=== PATIENT | male | born 1950 | race African-American/Black ===

== ENCOUNTER 2025-04-01 15:43 | Emergency (ER) | payer MEDICARE, OTHER, SELFPAY ==
--- NOTE | 2025-04-01 15:47 | ED.DENTAL ---
HPI - Dental/Oral General Chief complaint: Dental/Oral Stated complaint: Dental Pain Time Seen by Provider: 04/01/25 15:47 Source: patient Mode of arrival: ambulatory Limitations: no limitations History of Present Illness HPI Narrative: Enoc is a 74-year-old male patient presenting to the clinic today with complaints dental pain times 2-3 months. He reports he is having pain to the left upper posterior and left lower posterior molar. Pain is worse with biting down. Rates his pain 10 at 10 when biting down. Does not like to take pain medications so he has not taken anything for pain. Related Data Home Medications ?Medication ?Instructions ?Recorded ?Confirmed ?Last Taken ?Type amlodipine 10 mg tablet mg 04/01/25 Unknown History empagliflozin 25 mg tablet 25 mg PO DAILY 04/01/25 04/01/25 Unknown History (Jardiance) losartan 100 mg tablet mg 04/01/25 Unknown History metformin 1,000 mg tablet mg 04/01/25 Unknown History Allergies Allergy/AdvReac Type Severity Reaction Status Date / Time No Known Allergies Allergy Verified 04/01/25 16:03 Review of Systems Review of Systems: Pertinent positives per HPI. Patient denies any fever, chills, rash, headache, visual changes, dizziness, cough, runny nose, sore throat, shortness of breath, chest pain, palpitations, nausea, vomiting, diarrhea, constipation, abdominal pain, or any urinary issues. PMFSH Comments At the time of my signature, I reviewed and agree with the nursing past medical, surgical, social, and family history. There is no relevant family history pertinent to the patient complaint. Exam Narrative: General: Well-developed, well nourished, in no apparent distress Head: Normocephalic, atraumatic Eyes: Pupils equally round and reactive to light bilaterally, EOM intact, sclera and conjunctive clear, no discharge, lids normal Ears: TMs intact and clear, ear canals clear, no drainage, grossly hearing normal. Nose: Nares patent, no discharge, no inflammation, no sinus tenderness. Mouth: Oropharynx without lesions or masses, poor dentition, MMM. Dental decay to the left upper posterior molar and the left lower posterior molar Neck: Supple, trachea midline, no enlargement of anterior or posterior cervical nodes, no thyroid masses or goiter palpable. Cardio: Regular rate and rhythm, s1 and s2 normal, no murmur appreciated. Resp: Clear to auscultation bilaterally anteriorly and posteriorly, no rhonchi, rales, wheezing or rubs Course Course Emergency Course: Portions of this record may have been created with voice recognition software. Level of Care: Express Care Visit Vital Signs Vital signs: Vital Signs Temperature 36.3 C L 04/01/25 15:58 Pulse Rate 56 L 04/01/25 15:58 Respiratory Rate 18 04/01/25 15:58 Blood Pressure 142/72 H 04/01/25 15:58 Pulse Oximetry 99 04/01/25 15:58 Oxygen Delivery Room Air 04/01/25 15:58 Temperature 36.3 C L 04/01/25 15:58 Pulse Rate 56 L 04/01/25 15:58 Respiratory Rate 18 04/01/25 15:58 Blood Pressure 142/72 H 04/01/25 15:58 Pulse Oximetry 99 04/01/25 15:58 Oxygen Delivery Room Air 04/01/25 15:58 Vital signs reviewed MDM - Dental/Oral MDM Narrative Medical decision making narrative: At the time of visit patient is resting comfortably on the exam table. Patient appears to be nontoxic. Complaints dental pain times 2-3 months. He reports he is having pain to the left upper posterior and left lower posterior molar. Pain is worse with biting down. Rates his pain 10 at 10 when biting down. Does not like to take pain medications so he has not taken anything for pain. On exam patient has dental pain to the left upper posterior and the left lower posterior molar with mild gingival swelling. Tenderness to palpation over these teeth. Plan: I suspect patient has dental pain to the left upper and left lower posterior molars with dental decay. Prescription for amoxicillin was sent to cover for any infection. Recommend Tylenol Motrin as needed for pain. Will put this this soon as possible Supportive measures were discussed with the patient and they voiced understanding discharge instructions and agrees to treatment plan. Return precautions reviewed Differential Diagnosis Differential diagnosis: Likely gingival abscess, dental caries, toothache, dental abscess, fracture of tooth and aphthous ulcer Discharge Plan Discharge Clinical Impression: Toothache, Dental caries Patient Disposition: Home Condition: Stable Instructions: Antibiotic Form, Toothache (ED) Additional Instructions: Take medications as prescribed-amoxicillin Increase fluids and stay well hydrated May take Tylenol/Motrin as needed for pain or fever May apply Orajel to the affected area to help alleviate pain May apply warm or cool compress to the affected area to help alleviate pain Follow-up with your dentist as soon as possible-a list of dentist was given to you. Patient Language: Emirati Prescriptions: New amoxicillin 500 mg tablet 500 mg PO Q8H 10 Days Qty: 30 0RF No Action amlodipine 10 mg tablet metformin 1,000 mg tablet losartan 100 mg tablet Jardiance 25 mg tablet 25 mg PO DAILY Follow-up/Referrals: UNKNOWN,DOCTOR [Non-Staff] Time of Disposition: 16:09 Quality NIHSS Nursing Documentation ED NIHSS nursing documentation: reviewed/agree
[2025-04-01 15:58] VITALS: BP 142/72; PULSE 56; RESP 18; TEMP 36.3; O2SAT 99
--- OUTSIDE RECORDS SUMMARY | 2025-04-01 16:08 | XMS_ITS | Clinical Summary ---
Author Organization [facility] Address [address] [place] [address] Care Team Providers Care Deputy County Attorney Name Role Phone Endy Jeffers MD Primary Care Provider [phone] Tifafny Gallagher MD Unavailable [phone] Source Comments [facility],non-owned Affiliates and Associated Physician Practices is amultiple site organization consisting of ambulatory clinics and hospital sitesin [place], [place], [place] and [place]. This disclosure is being madepursuant to the Care Everywhere program and may not contain all information available regarding this patient. Last updated 18.[facility] Allergies No known active allergies Medications * Be aware that medications may not be up to date on this document. Alwaysverify current medications with the patient. amLODIPine (NORVASC) 10 MG tablet Take 1 tablet by mouth once daily 90 tablet 3 9 Active losartan (COZAAR) 100 MG tablet Take 1 tablet by mouth once daily 90 tablet 3 9 Active blood glucose (FREESTYLE LITE STRIPS) test stripIndicatio ns:Diabetes Mellitus Use 1 strip once daily Reasons: Diabetes 100 strip 0 Active FREESTYLE LITE (FREESTYLE LITE) MISC LANCETSIndicat ions:Diabetes Mellitus 1 device by In Vitro route once daily Reasons: Diabetes 100 Each 0 Active Additional Information Patient not taking.Reported on 09/28/2019 Blood Glucose Monitoring Suppl (FREESTYLE LITE) DEVIIndication s:Diabetes Mellitus Use 1 device as directed Reasons: Diabetes 1 Each 0 Active empagliflozin (JARDIANCE) 25 MG tablet Take 1 tablet by mouth once daily 90 tablet 0 Active Additional Information Patient not taking.Reported on 07/23/2019 metFORMIN ER 24hr (GLUCOPHAGE XR) 500 MG tablet Take 2 tablets by mouth 2 times daily 1 tablet 0 Active atorvastatin (LIPITOR) 40 MG tablet Take 1 tablet by mouth at bedtime 30 tablet 0 Active Additional Information Patient not taking.Reported on 04/01/2020 lidocaine (LIDODERM) 5 % patch Apply 5 patches to skin as needed 9 Active acetaminophen (TYLENOL) 325 MG tablet Take 2 tablets by mouth every 6 hours as needed for Pain Maximum allowable Acetaminophen amount = 4 Grams (4000 mg) / 24 hours. 40 tablet 0 Active Active Problems Problem Noted Date Diagnosed Date Facial droop 08/20/2019 Essential hypertension 10/16/2018 Overview (10/16/2018): Overview: On amlodipine 10mg and losartan 100mg. Last Assessment & Plan: BP in clinic today 151/71, but BP at home typically 130's/80's. 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 Last Assessment & Plan: Struggling with insomnia, likely from anxious ruminations and PTSD, does not want pharmacotherapy. 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 Pt resistant to increasing to 1g BID. Not willing to try Januvia. - increasing Metformin to 1g qAM and 500mg qPM - pt agreed to increase exercise - will look into statin, does not want to start at this time - will schedule [facility] appt [facility]) Resolved Problems Problem Noted Date Diagnosed Date Resolved Date Hypertension 05/28/2019 Immunizations Immunization Administration Dates Next Due DTaP VACCINE IM (6wk-6yrs) 05/14/2011 HEP A VACCINE, ADULT 09/13/2018 HEP A/HEP B 05/01/2019 MENINGOCOCCAL ACWY (MCV4P) VAC IM 05/14/2011 TDAP (7yrs+) 05/14/2011 TYPHOID IM 09/13/2018 TYPHOID ORAL 05/14/2011 YELLOW FEVER 05/14/2011 ZOSTER VACCINE, LIVE 10/19/2012 Family History Medical History Relation Name Comments Diabetes - Type 2 Brother 1 Renal Disease Brother 1 esrd Diabetes - Type 2 Father COPD - Chronic Obstructive Pulmonary Disease Mother Hypertension Mother Cancer - Breast Sister Diabetes - Type 2 Son Hypertension Son Relation Name Status Comments Brother 1 Alive Brother 2 Alive Brother 3 Alive Brother 4 Alive Father Mother Sister Alive Son Alive Social History Tobacco Use Types Packs/Day Years Used Date Smoking Tobacco: Never Smokeless Tobacco: Never Alcohol Use Standard Drinks/Week Comments Yes 14 (1 standard drink = 0.6 oz pu re alcohol) Sex and Gender Information Value Date Recorded Sex Assigned at Not on file Legal Sex Male 11:42 AM CDT Gender Identity Not on file Sexual Orientation Not on file Last Filed Vital Signs Vital Sign Reading Time Taken Comments Blood Pressure 172/83 06/14/2023 1:36 PM [facility] Pulse 63 06/14/2023 1:36 PM [facility] Temperature 36.4 C (97.6 F) 06/14/2023 1:36 PM [facility] Respiratory Rate 16 06/14/2023 1:36 PM [facility] Oxygen Saturation 97% 06/14/2023 1:55 PM [facility] Inhaled Oxygen Concentration - - Weight 95.3 kg (210 lb) 06/14/2023 1:36 PM [facility] Height 190.5 cm (6' 3) 06/14/2023 1:36 PM [facility] Body Mass Index 26.25 06/14/2023 1:36 PM [facility] Plan of Treatment Health Maintenance Due Date Last Done Comments COLOGUARD (AGES 45-75) - COLON CA SCREENING 1950 CT COLONOGRAPHY - COLON CA SCREENING 1950 FIT - COLON CA SCREENING 1950 FLEX SIG - COLON CA SCREENING 1950 HEPATITIS C SCREENING 10/25/1968 PNEUMOCOCCAL VACCINE 50+ (1 of 2 - PCV) 1969 Respiratory Syncytial Virus (RSV) Vaccine Pt: or over 60 yrs (1 - Risk 60-74 years 1-dose series) 2010 ZOSTER VACCINE (2 of 3) 12/14/2012 10/19/2012 HEPATITIS B VACCINE (2 of 3 - Hep B Twinrix 3-dose series) 05/29/2019 05/01/2019 DIABETES-FOOT EXAM WITH MONOFILAMENT 05/28/2020 05/28/2019, 10/16/2018 COLON MONITORING 07/23/2020 07/23/2019, , 07/23/2019, Additional history exists Colorectal Cancer Screening 07/23/2020 DTAP/TDAP/TD VACCINES (3 - Td or Tdap) 05/14/2021 05/14/2011, 05/14/2011 DIABETES RETINOPATHY SCREENING 01/21/2022 01/22/2020, 12/04/2018 DIABETES-HGB A1C 05/02/2024 01/31/2024, , 04/16/2022, Additional history exists DEPRESSION SCREENING 06/27/2024 DIABETES - URINE PROTEIN SCREENING 06/27/2024 10/16/2018 MEDICARE AWV CALENDAR YEAR 2024 05/28/2019 DIABETES-SERUM CREATININE 01/30/20252023, 01/31/2024, 01/31/2024, Additional history exists COVID-19 VACCINE (2024- season) 2025 03/15/2022, 09/27/2021, 04/01/2021, Additional history exists INFLUENZA VACCINE (#1) 2025 4, 03/27/2013, 04/04/2012, Additional history exists COLONOSCOPY - COLON CA SCREENING 07/23/2029 07/23/2019, 07/23/2019, 07/23/2019, Additional history exists MENINGOCOCCAL GROUPS A/C/Y/W VACCINE Aged Out 05/14/2011 No longer eligible based on patient's age to complete this topic HIB VACCINE Aged Out No longer eligi ble based on patient's age to complete this topic HPV VACCINE Aged Out No longer eligi ble based on patient's age to complete this topic MENINGOCOCCAL (Group B) VACCINE SHARED DECISION-MAKING Aged Out No longer eligible based on patient's age to complete this topic Procedures Procedure Name Priority Date/Time Associated Diagnosis Comments COMPREHENSIVE METABOLIC PANEL STAT 06/14/2023 3:47 PM [facility] DIABETES EYE EXAM Routine 01/22/2020 HEMOGLOBIN A1C Add on 08/20/2019 12:28 PM [facility] Facial droop ENDOSCOPY, COLON, SCREENING Routine 07/23/2019 7:50 AM [facility] MICROALB/CREAT RATIO URINE RANDOM PANEL Routine 10/16/2018 9:47 AM CDT Type 2 diabetes mellitus without complication, without long-term current use of insulin from Last 3 Months or Most Recently Relevant to Health Maintenance Results * (ABNORMAL) COMPREHENSIVE METABOLIC PANEL (06/14/2023 3:47 PM [facility]) BUN 16 7 - 26 mg/dL 06/14/2023 4:31 PM [facility] Creatinine 1.00 0.71 - 1.16 mg/dL 06/14/2023 4:31 PM [facility] Sodium 139 136 - 145 mmol/L 06/14/2023 4:31 PM [facility] Potassium 4.4 3.5 - 4.5 mmol/L 06/14/2023 4:31 PM [facility] Chloride 108(H) 98 - 107 mmol/L 06/14/2023 4:31 PM [facility] CO2 21(L) 22 - 29 mmol/L 06/14/2023 4:31 PM [facility] Glucose 158(H) 70 - 115 mg/dL 06/14/2023 4:31 PM [facility] Calcium 8.6 8.4 - 10.2 mg/dL 06/14/2023 4:31 PM [facility] Protein Total 7.2 6.0 - 8.3 g/dL 06/14/2023 4:31 PM [facility] Albumin 3.9 3.4 - 5.0 g/dL 06/14/2023 4:31 PM [facility] Bilirubin Total 0.5 0.2 - 1.2 mg/dL 06/14/2023 4:31 PM [facility] Alkaline Phosphatase 50 40 - 150 U/L 06/14/2023 4:31 PM [facility] ALT 13 5 - 55 U/L 06/14/2023 4:31 PM [facility] AST 18 5 - 34 U/L 06/14/2023 4:31 PM [facility] Anion Gap 10 6 - 16 06/14/2023 4:31 PM [facility] BUN/Creatinine Ratio 16 7 - 23 06/14/2023 4:31 PM [facility] Osmolality Calculated 292 275 - 295 mOsm/kg 06/14/2023 4:31 PM [facility] Albumin/Globulin Ratio 1.2 1.1 - 2.3 06/14/2023 4:31 PM [facility] eGFR by CKD-EPI 80(L) >=90 mL/min/1.7 3 m2 06/14/2023 4:31 PM [facility] Blood BLOOD SPECIMEN / Unknown Venipuncture / Unknown 06/14/2023 3:47 PM [facility] 06/14/2023 3:55 PM [facility] us Jefferson Gruber MD LAB - CHEMISTRY ORDERABLES Fi nal Result [facility] [address] [place] [address], [facility] [phone] * DIABETES EYE EXAM (01/22/2020) Scanned Document HEALTH MAINTENANCE Final Result * (ABNORMAL) HEMOGLOBIN A1C (08/20/2019 12:28 PM [facility]) Hemoglobin A1c 8.3(H) 4.2 - 5.6 % 08/20/2019 6:43 PM [facility] Estimated Average Glucose 192 mg/dL 08/20/2019 6:43 PM [facility] Blood BLOOD SPECIMEN / Unknown Venipuncture / Unknown 08/20/2019 12:28 PM [facility] 08/20/2019 12:34 PM [facility] Narrative [facility] - 08/20/2019 6:43 PM [facility] The following cutoff levels are recommended by [place] [employer]. A1c > 6.5% : considered as diabetes if two separate tests >6.5% or in an appropriate clinical setting. A1c 5.7% - 6.4% : considered as prediabetes (suggest increased risk for diabetes and cardiovascular disease) Control target level: Should be individualized. < 7 for general (non-) , < 8% less stringent goal, < 6.5 more stringent goal. Hemoglobin A1c measurements are used as an aid in the diagnosis of diabetic mellitus, as an aid to identify patients who may be at the risk for developing diabetic mellitus, and for the monitoring long-term blood glucose control in individuals with diabetes mellitus. This test should not replace glucose testing for patients with Type 1 diabetes, pediatric patients, or women. Falsely low HbA1c results may be observed in patients with clinical conditions that shorten erythrocyte life span or decrease mean erythrocyte age such as the presence of unstable hemoglobin variants, elevated hemoglobin F level or other causes of hemolytic anemia . HbA1c may not accurately reflect glycemic control when clinical conditions that affect erythrocyte survival are present. Severe Iron deficiency anemia may yield falsely high results. Hemoglobin A1c assay should not be used to diagnose or monitor diabetes in patients with malignancy, recent blood transfusion, chronic kidney or liver disease. This method may yield falsely low results when hemoglobin (HbF) exceeds 5% in the specimen. Eda Tovar CLERICAL ORDER FILLER-COIL CONNECTOR LAB - CHEMISTRY ORDERABLES Final Result [facility] [address] [place] [address] * ENDOSCOPY, COLON, SCREENING (07/23/2019 7:50 AM [facility]) Report Endoscopy POC _ Patient Name: Joanne Mackenzie Procedure Date: 07/23/2019 7:50 AM Date of : 1950 Admit Type: Outpatient Age: 68 Gender: Male Ethnicity: Not or Race: Black or Attending MD: Farshad Fernandes MD _ Procedure: Colonoscopy Indications: Screening for colorectal malignant neoplasm Providers: Farshad Fernandes MD (Doctor), Jamie Riggs RN, Jamia Crowley, Bull Gang Worker Referring MD: Sushant Birch MD (Referring MD) Medicines: Monitored Anesthesia Care Complications: No immediate complications. _ Procedure: Pre-Anesthesia Assessment: - Prior to the procedure, a History and Physical was performed, and patient medications and allergies were reviewed. The patient's tolerance of previous anesthesia was also reviewed. The risks and benefits of the procedure and the sedation options and risks were discussed with the patient. All questions were answered, and informed consent was obtained. Prior Anticoagulants: The patient has taken no previous anticoagulant or antiplatelet agents. ASA Grade Assessment: II - A patient with mild systemic disease. After reviewing the risks and benefits, the patient was deemed in satisfactory condition to undergo the procedure. After I obtained informed consent, the scope was passed under direct vision. Throughout the procedure, the patient's blood pressure, pulse, and oxygen saturations were monitored continuously. The Colonoscope was introduced through the anus and advanced to the cecum, identified by appendiceal orifice and ileocecal valve. The colonoscopy was performed without difficulty. The patient tolerated the procedure well. The quality of the bowel preparation was poor. The ileocecal valve, appendiceal orifice, and rectum were photographed. Impression: - Preparation of the colon was poor. - One 6 mm polyp in the rectum, removed with a cold snare. Resected and retrieved. - Two 3 mm polyps in the transverse colon, removed with a jumbo cold forceps. Resected and retrieved. - Diverticulosis. - Stool in the entire examined colon. Findings: A 6 mm polyp was found in the rectum. The polyp was sessile. The polyp was removed with a cold snare. Resection and retrieval were complete. Estimated blood loss: none. Two sessile polyps were found in the transverse colon. The polyps were 3 mm in size. These polyps were removed with a jumbo cold forceps. Resection and retrieval were complete. Estimated blood loss: none. Diverticula were found in the colon. A moderate amount of liquid semi-liquid stool was found in the entire colon, making visualization difficult. Lavage of the area was performed, resulting in clearance with fair visualization. _ Recommendation: - Written discharge instructions were provided to the patient. - The signs and symptoms of potential delayed complications were discussed with the patient. - Patient has a contact number available for emergencies. - Return to normal activities tomorrow. - Resume previous diet. - Repeat colonoscopy in 1 year because the bowel preparation was suboptimal and for surveillance based on pathology results. - Continue present medications. Procedure Code(s): --- Professional --- 88050, Colonoscopy, flexible; with removal of tumor(s), polyp(s), or other lesion(s) by snare technique 81517, 59, Colonoscopy, flexible; with biopsy, single or multiple --- Technical --- 36280, Colonoscopy, flexible; with removal of tumor(s), polyp(s), or other lesion(s) by snare technique [id number], 59, Colonoscopy, flexible; with biopsy, single or multiple Diagnosis Code(s): --- Professional --- Z12.11, Encounter for screening for malignant neoplasm of colon K62.1, Rectal polyp D12.3, Benign neoplasm of transverse colon (hepatic flexure or splenic flexure) K57.30, Diverticulosis of large intestine without perforation or abscess without bleeding --- Technical --- Z12.11, Encounter for screening for malignant neoplasm of colon K62.1, Rectal polyp D12.3, Benign neoplasm of transverse colon (hepatic flexure or splenic flexure) K57.30, Diverticulosis of large intestine without perforation or abscess without bleeding CPT copyright 2017 [employer]. All rights reserved. The codes documented in this report are preliminary and upon statistical clerk review may be revised to meet current compliance requirements. Farshad Fernandes MD 07/23/2019 9:01:18 AM This report has been signed electronically. Number of Addenda: 0 Note Initiated On: 07/23/2019 7:50 AM [facility] ENDOS[facility] 07/23/2019 7:50 AM [facility] us Farshad Fernandes MD GI PROCEDURE ORDERABLES Edited R esult - Final [facility] ENDOSCOPY * MICROALB/CREAT RATIO URINE RANDOM PANEL (10/16/2018 9:47 AM CDT) Creatinine Urine 144 20 - 320 mg/dL [facility] Microalbumin Urine 1.4 mg/dL [facility] Comment: Reference Range Not established Microalbumin/Creat inine Ratio 10 <30 mcg/mg creat [facility] Comment: The ADA defines abnormalities in albumin excretion as follows: Category Result (mcg/mg creatinine) Normal <30 Microalbuminuria 30-299 Clinical albuminuria > OR = 300 The ADA recommends that at least two of three specimens collected within a 3-6 month period be abnormal before considering a patient to be within a diagnostic category. Test Performed at: [email or web address] [id number] [address] [facility] [place] [address] ETHAN RODRIGUEZ DO,MPH Urine URINE SPECIMEN OBTAINED BY CLEAN CATCH PROCEDURE / Unknown 10/16/2018 9:47 AM CDT 10/16/2018 9:49 AM CDT Sushant Birch Jr., MD LAB - URINE CH EMISTRY ORDERABLES Final Result [facility] [id number] [place] [address] from Last 3 Months or Most Recently Relevant to Health Maintenance Insurance MEDICARE [facility] [employer] MEDICARE ADV HMO & PPO MEDICARE [facility] Advance Directives * Full Code (Latest Code Status on File) Date Activated Date Inactivated Comments 08/20/2019 6:21 PM 08/21/2019 7:12 PM * Full Code Date Activated Date Inactivated Comments 08/20/2019 6:08 PM 08/20/2019 6:21 PM Care Teams Deputy County Attorney Relationship Specialty Start Date End Date Endy Jeffers MD [address] [facility], [id number] PCP - General Family Medicine 09/28/19 Tiffany Gallagher MD [address] [facility], [id number] Resident Internal Medicine 04/24/24
--- OUTSIDE RECORDS SUMMARY | 2025-04-01 16:08 | XMS_ITS | Data Portability ---
Author Organization ADIEL - [facility] Address [address] [place] [address] Assessment Encounter Date Assessment Date Assessment LastModified by Organization Details LastModified Time 09/01/2023 09/01/2023 Pneumodoren #1 10 drops followed by pneumodoren #2 10 drops ten minutes later Eupatorium injection Samson cocktails [email or web address] Not available 09/01/2023 14:53:56 Plan of Treatment Reminders Order Date Submit Date Provider Last Modified By Organization Details Last Modified Time Details Appointments [facility] PATIENT 2024 09:00A Ted Jeffers M.D. Not available Not available Not available Lab vitamin B12 + folate, serum or blood 2024 025 amalic Not available 10/05/2024 07:43:19 iron + TIBC + ferritin , serum 2024 025 amalic Not available 10/05/2024 07:43:19 vitamin D3, 25-hydro xy, serum 2024 025 amalic Not available 10/05/2024 07:43:19 PSA, serum or plasma 2024 025 amalic Not available 10/05/2024 07:43:19 lipid panel, serum 2024 025 amalic Not available 10/05/2024 07:43:19 TSH, serum or plasma 2024 025 amalic Not available 10/05/2024 07:43:19 HbA1c (hemoglo bin A1c), blood 2023 024 [email or web address] Not available 02/01/2024 05:34:49 vitamin B12 + folate, serum or blood 2023 024 NEVAEH Not available 02/01/2024 05:34:49 iron + TIBC + ferritin , serum 2023 024 NEVAEH Not available 02/01/2024 05:34:48 testoste liang, total, serum 2023 024 NEVAEH Not available 02/01/2024 05:34:46 vitamin D3, 25-hydro xy, serum 2023 024 12 Not available 02/06/2024 14:40:36 CBC w/ auto diff 2023 024 NEVAEH Not available 02/01/2024 05:34:45 CMP, serum or plasma 2023 024 NEVAEH Not available 02/01/2024 05:34:47 PSA, serum or plasma 2023 024 NEVAEH Not available 02/01/2024 05:34:46 lipid panel, serum 2023 024 [email or web address] Not available 02/06/2024 14:40:36 TSH, serum or plasma 2023 024 NEVAEH Not available 02/01/2024 05:34:48 HbA1c (hemoglo bin A1c), blood 2023 024 amalic Not available 07/22/2023 07:50:28 CMP, serum or plasma 2023 024 amalic Not available 07/22/2023 07:50:28 lipid panel, serum 2023 024 amalic Not available 07/22/2023 07:50:28 CBC w/ auto diff 2023 024 amalic Not available 07/22/2023 07:50:28 Referral orthoped ic surgeon referral 2024 025 amalic Emmanuel Huertas MD, [facility] , [place], [address], 03/11/2025 07:36:23 Procedures None recorded . Surgeries None recorded . Imaging None recorded . Medication Orders amlodipi ne 10 mg tablet 2024 025 [facility] #[id number], [address] [place] [address], [id number], 03/05/2025 14:08:16 metformi n 1,000 mg tablet 2024 025 [facility] #[id number], [address] [place] [address], [id number], 03/05/2025 14:08:25 losartan 100 mg tablet 2024 025 [facility] #[id number], [address] [place] [address], [id number], 03/05/2025 14:08:22 Patient TargetsNo targets recorded. Patient Instructions Encounter Date Encounter Id Patient Instructions Last Modified By Organization Details Last Modified Time 07/15/2023 [id number] high cholesterol : care instructions cwessling Not available 07/15/2023 12:21:44 01/30/2024 [id number] learning about t ype 2 diabetes cwessling Not available 01/30/2024 19:21:20 type 2 diabetes: care instructions cwessling Not available 01/30/2024 19:21:20 Take cyclobenzaprine regularly as prescribed. cwessling Not available 01/30/2024 19:18:56 09/28/2024 [id number] learning about t ype 2 diabetes cwessling Not available 09/28/2024 17:57:03 03/05/[id number] learning about t ype 2 diabetes cwessling Not available 03/05/2025 14:07:59 Reason for Referral Orthopedic Surgeon Referral for Chronic pain of right upper limb Referring Physician: Endy Jeffers, Family Medicine, Encounter Date: 03/05/2025 Results Created Date Observation Date Name Description Value Unit Range Abnormal Flag Note LastModifiedBy Organization Detail LastModifiedTime 01/31/20 24 01/31/2024 CBC W/DIF F WBC 4.8 10'3/ uL 3.5-10 .5 Not Available [facility] (Lab) [address], [place], [address], 02/01/2024 05:34:45 01/31/20 24 01/31/2024 CBC W/DIF F RBC 5.37 10'6/ uL (based on docume nted legal sex) 4.30-5 .80 Not Available [facility] (Lab) [address], [place], [address], 02/01/2024 05:34:45 01/31/20 24 01/31/2024 CBC W/DIF F HGB 16.0 g/dL (based on docume nted legal sex) 13.0-1 7.5 Not Available [facility] (Lab) [address], [place], [address], 02/01/2024 05:34:45 01/31/20 24 01/31/2024 CBC W/DIF F HCT 50.1 % (based on docume nted legal sex) 38.0-5 0.0 high Not Available [facility] (Lab) [address], [place], [address], 02/01/2024 05:34:45 01/31/20 24 01/31/2024 CBC W/DIF F MCV 93.3 fL 80.0-9 9.0 Not Available [facility] (Lab) [address], [place], [address], 02/01/2024 05:34:45 01/31/20 24 01/31/2024 CBC W/DIF F MCH 29.8 pg 27.0-3 4.0 Not Available [facility] (Lab) [address], [place], [address], 02/01/2024 05:34:45 01/31/20 24 01/31/2024 CBC W/DIF F MCHC 31.9 g/dL 32.0-3 5.5 low Not Available [facility] (Lab) [address], [place], [address], 02/01/2024 05:34:45 01/31/20 24 01/31/2024 CBC W/DIF F RDW 15.1 % 11.0-1 5.0 high Not Available [facility] (Lab) [address] [address], [place], [address], 02/01/2024 05:34:45 01/31/20 24 01/31/2024 CBC W/DIF F plt 230 10'3/ uL 150-40 0 Not Available [facility] (Lab) [address], [place], [address], 02/01/2024 05:34:45 01/31/20 24 01/31/2024 CBC W/DIF F MPV 11.0 fL 8.8-12 .1 Not Available [facility] (Lab) [address], [place], [address], 02/01/2024 05:34:45 01/31/20 24 01/31/2024 CBC W/DIF F NRBC's 0.0 % 0.0 Not Available [facility] (Lab) [address], [place], [address], 02/01/2024 05:34:45 01/31/20 24 01/31/2024 CBC W/DIF F absolute NRBCs 0.0 10'3/ uL no refere nce range establ ished Not Available [facility] (Lab) [address], [place], [address], 02/01/2024 05:34:45 01/31/20 24 01/31/2024 CBC W/DIF F neutrophils 52.1 % 34.0-7 3.0 Not Available [facility] (Lab) [address], [place], [address], 02/01/2024 05:34:45 01/31/20 24 01/31/2024 CBC W/DIF F lymphocytes 35.5 % 15.0-5 0.0 Not Available [facility] (Lab) [address], [place], [address], 02/01/2024 05:34:45 01/31/20 24 01/31/2024 CBC W/DIF F monocytes 9.5 % 1.0-15 .0 Not Available [facility] (Lab) [address], [place], [address], 02/01/2024 05:34:45 01/31/20 24 01/31/2024 CBC W/DIF F eosinophils 2.1 % 0.0-8. 0 Not Available [facility] (Lab) [address], [place], [address], 02/01/2024 05:34:45 01/31/20 24 01/31/2024 CBC W/DIF F basophils 0.6 % 0.0-2. 0 Not Available [facility] (Lab) [address], [place], [address], 02/01/2024 05:34:45 01/31/20 24 01/31/2024 CBC W/DIF F immature granulocytes 0.2 % no define d refere nce range Not Available [facility] (Lab) [address], [place], [address], 02/01/2024 05:34:45 01/31/20 24 01/31/2024 CBC W/DIF F absolute neutrophils 2.5 10'3/ uL 1.5-8. 0 Not Available [facility] (Lab) [address] [place], [address], 02/01/2024 05:34:45 01/31/20 24 01/31/2024 CBC W/DIF F absolute lymphocytes 1.7 10'3/ uL 1.0-4. 0 Not Available [facility] (Lab) [address] [place], [address], 02/01/2024 05:34:45 01/31/20 24 01/31/2024 CBC W/DIF F absolute monocytes 0.5 10'3/ uL 0.2-1. 0 Not Available [facility] (Lab) [address], [place], [address], 02/01/2024 05:34:45 01/31/20 24 01/31/2024 CBC W/DIF F absolute eosinophils 0.1 10'3/ uL 0.0-0. 6 Not Available [facility] (Lab) [address], [place], [address], 02/01/2024 05:34:45 01/31/20 24 01/31/2024 CBC W/DIF F absolute basophils 0.0 10'3/ uL 0.0-0. 3 Not Available [facility] (Lab) [address], [place], [address], 02/01/2024 05:34:45 01/31/20 24 01/31/2024 CBC W/DIF F absolute immature granulocytes 0.0 10'3/ uL 0.00-0 .10 024 2:24 AM: P indic ates parti al resul ts on a panel have been relea sed. Addit ional resul ts will follo w. 024 2:24 AM: This resul t has been final verif ied. No addit ional or mercado ed resul ts are expec anthony. Not Available [facility] (Lab) [address], [place], [address], 02/01/2024 05:34:45 01/31/20 24 01/31/2024 TESTO STERO NE, TOTAL testosterone , total 343 NG/dL 200-80 0 Not Available [facility] (Lab) [address], [place], [address], 02/01/2024 05:34:46 01/31/20 24 01/31/2024 PSA TOTAL (DIAG NOSTI C) PSA, total 2.39 NG/mL 0.00-4 .00 This assay was perfo rmed using Beckm an Coult er reage nts and test kits. Value s obtai bipin with other assay metho ds or kits canno t be used inter mercado eably . Not Available [facility] (Lab) [address], [place], [address], 02/01/2024 05:34:46 01/31/20 24 01/31/2024 LIPID PANEL ,AMA (LDL- CALC) total cholesterol 124 mg/dL 0-199 Not Available [facility] (Lab) [address] [place], [address], 02/01/2024 05:34:47 01/31/20 24 01/31/2024 LIPID PANEL ,AMA (LDL- CALC) triglyceride s 53 mg/dL 0-150 NCEP Refer ence Value s for Trigl yceri radha: Steph l: <150 mg/dL Borde rline High: 150 - 199 mg/dL High: 200 - 499 mg/dL Very High: >/= 500 mg/dL Not Available [facility] (Lab) [address] [place], [address], 02/01/2024 05:34:47 01/31/20 24 01/31/2024 LIPID PANEL ,AMA (LDL- CALC) HDL cholesterol 63 mg/dL >40 Not Available [facility] (Lab) [address] [place], [address], 02/01/2024 05:34:47 01/31/20 24 01/31/2024 LIPID PANEL ,AMA (LDL- CALC) LDL cholesterol 48 mg/dL 0-99 Cutof f value s recom kelli d by the Natio nal Surekha stero l Educa tion Progr am: DILLON ABLE: Surekha stero l <200 mg/dL LDL <100 mg/dL BORDE RLINE : Surekha stero l 200-2 39 mg/dL LDL 101-1 59 mg/dL HIGHE R RISK: Surekha stero l >240 mg/dL LDL >160 mg/dL , HDL <40 mg/dL Not Available [facility] (Lab) [address], [place], [address], 02/01/2024 05:34:47 01/31/2001/31/2024 LIPID PANEL ,AMA (LDL- CALC) non-HDL cholesterol 61 mg/dL no refere nce range A reaso nable goal for non-H DL surekha stero l is one that is 30 mg/dL highe r than the LDL surekha stero l goal. Not Available [facility] (Lab) [address], [place], [address], 02/01/2024 05:34:47 01/31/2001/31/2024 LIPID PANEL ,AMA (LDL- CALC) chol/HDL ratio 2.0 . 0.0-5. 0 On October 19, 2022, [facility] labor atori es rogelio ed the equat ion for calcu latin g estim ated low-d ensit y lipop rotei n-cho leste rol (LDL- C) from the Fried joceline equat ion to the Jess n/Hop kins equat ion. This new equat ion is only valid for lipid panel s with trigl yceri radha < 400 mg/dL . Jesúsi es hans arenas ed that this new equat ion will impro ve the accur acy of LDL-C , espec ially in scena falk when LDL-C bobby ntrat ions are relat ively low (< 100 mg/dL ), trigl yceri radha are eleva anthony, or patie nt is non-f astin g. Refer ences : - Jess masters, Gabo Gudino, Hao Reyes , Carie colmenares, Donavan Calloway, Donavan freire, Naun browne , and Oliver Chávez . 2013. Comp ariso n of a Novel Metho d vs the Fried joceline Equat ion for Estim ating Low-D ensit y Lipop rotei n Surekha stero l Level s from the Stand deacon Lipid Profi derrell. ADRIANNA: The Journ al of the Ameri can Medic al Assoc iatio n 310 (19): 206- . - Ila brown V, Mireya J, Maria Dolores ar A, Michelle M, Sandee e R, Juwan brown E, Carlo browne RS, Kyler SR, Jess n SS. Fast ing Versu s Nonfa sting and Low-D ensit y Lipop rotei n Surekha stero l Accur acy. Circu latyemi n. 2017Jun 28;137 (1):1 0-19. Not Available [facility] (Lab) [address], [place], [address], 02/01/2024 05:34:47 01/31/20 24 01/31/2024 CMP(C OMPRE HENSI VE METAB OLIC PANEL ) sodium 139 mmol/ L 133-14 6 Not Available [facility] (Lab) [address], [place], [address], 02/01/2024 05:34:47 01/31/20 24 01/31/2024 CMP(C OMPRE HENSI VE METAB OLIC PANEL ) potassium 4.5 mmol/ L 3.5-5. 1 Not Available [facility] (Lab) [address], [place], [address], 02/01/2024 05:34:47 01/31/20 24 01/31/2024 CMP(C OMPRE HENSI VE METAB OLIC PANEL ) chloride 104 mmol/ L 98-107 Not Available [facility] (Lab) [address] [place], [address], 02/01/2024 05:34:47 01/31/20 24 01/31/2024 CMP(C OMPRE HENSI VE METAB OLIC PANEL ) carbon dioxide 26 mmol/ L 21-31 Not Available [facility] (Lab) [address] [place], [address], 02/01/2024 05:34:47 01/31/20 24 01/31/2024 CMP(C OMPRE HENSI VE METAB OLIC PANEL ) anion gap 9 mmol/ L 4-13 Not Available [facility] (Lab) [address], [place], [address], 02/01/2024 05:34:47 01/31/20 24 01/31/2024 CMP(C OMPRE HENSI VE METAB OLIC PANEL ) blood urea nitrogen 16 mg/dL 7-25 Not Available [facility] (Lab) [address], [place], [address], 02/01/2024 05:34:47 01/31/20 24 01/31/2024 CMP(C OMPRE HENSI VE METAB OLIC PANEL ) creatinine 1.09 mg/dL 0.60-1 .30 Not Available [facility] (Lab) [address], [place], [address], 02/01/2024 05:34:47 01/31/20 24 01/31/2024 CMP(C OMPRE HENSI VE METAB OLIC PANEL ) egfrcr (CKD-epi 2020) 72 mL/mi n/1.7 3_m2 >=60 Not Available [facility] (Lab) [address], [place], [address], 02/01/2024 05:34:47 01/31/20 24 01/31/2024 CMP(C OMPRE HENSI VE METAB OLIC PANEL ) calcium 9.3 mg/dL 8.3-10 .5 Not Available [facility] (Lab) [address] [place], [address], 02/01/2024 05:34:47 01/31/20 24 01/31/2024 CMP(C OMPRE HENSI VE METAB OLIC PANEL ) glucose 106 mg/dL 70-100 high Not Available [facility] (Lab) [address] [place], [address], 02/01/2024 05:34:47 01/31/20 24 01/31/2024 CMP(C OMPRE HENSI VE METAB OLIC PANEL ) protein, total 7.2 g/dL 6.4-8. 3 Not Available [facility] (Lab[facility] [address] [facility] [place], [address], 02/01/2024 05:34:47 01/31/20 24 01/31/2024 CMP(C OMPRE HENSI VE METAB OLIC PANEL ) albumin 4.5 g/dL 3.5-5. 0 Not Available [facility] (Lab) [address], [place], [address], 02/01/2024 05:34:47 01/31/20 24 01/31/2024 CMP(C OMPRE HENSI VE METAB OLIC PANEL ) ALT 12 units /L 11-51 Not Available [facility] (Lab) [address], [place], [address], 02/01/2024 05:34:47 01/31/20 24 01/31/2024 CMP(C OMPRE HENSI VE METAB OLIC PANEL ) alkaline phosphatase 54 units /L 34-104 Not Available [facility] (Lab) [address], [place], [address], 02/01/2024 05:34:47 01/31/20 24 01/31/2024 CMP(C OMPRE HENSI VE METAB OLIC PANEL ) AST 14 units /L 13-39 Not Available [facility] (Lab) [address], [place], [address], 02/01/2024 05:34:47 01/31/20 24 01/31/2024 CMP(C OMPRE HENSI VE METAB OLIC PANEL ) bilirubin, total 0.6 mg/dL 0.2-1. 2 Not Available [facility] (Lab) [address], [place], [address], 02/01/2024 05:34:47 01/31/20 24 01/31/2024 TSH TSH 2.21 uIU/m L 0.30-5 .33 Not Available [facility] (Lab) [address] [place], [address], 02/01/2024 05:34:48 01/31/20 24 01/31/2024 RUDY TIN / IRON / TRANS RDUY N / TIBC iron 79 ug/dL 60-175 Not Available [facility] (Lab) [address] [place], [address], 02/01/2024 05:34:48 01/31/20 24 01/31/2024 RUDY TIN / IRON / TRANS RUDY N / TIBC transferrin 266 mg/dL 200-36 0 Not Available [facility] (Lab) [address], [place], [address], 02/01/2024 05:34:48 01/31/20 24 01/31/2024 RUDY TIN / IRON / TRANS RUDY N / TIBC ferritin 115.4 NG/mL 24.0-3 36.0 Not Available [facility] (Lab) [address], [place], [address], 02/01/2024 05:34:48 01/31/20 24 01/31/2024 RUDY TIN / IRON / TRANS RUDY N / TIBC TIBC 372 ug/dL 250-45 0 Not Available [facility] (Lab) [address] [place], [address], 02/01/2024 05:34:48 01/31/20 24 01/31/2024 URDY TIN / IRON / TRANS RUDY N / TIBC iron saturation 21 % 20-55 Not Available [facility] (Lab) [address] [place], [address], 02/01/2024 05:34:48 01/31/20 24 01/31/2024 VITAM IN B12 / FOLAT E PANEL vitamin B12 548 pg/mL 180-91 4 Steph l Range : 180-9 14 pg/mL . Indet ermin ate Range : 145-1 80 pg/mL . Defic ient Range : <=145 pg/mL . Not Available [facility] (Lab) [address] [place], [address], 02/01/2024 05:34:49 08/06/20 24 01/31/2024 VITAM IN B12 / FOLAT E PANEL folate, serum 11.4 NG/mL 6.0-20 .0 Not Available [facility] (Lab) [address], [place], [address], 02/01/2024 05:34:49 01/31/20 24 01/31/2024 HEMOG LOBIN A1C hemoglobin A1C 7.4 % 0-5.6 high The Ameri can Diabe nate Assoc iatio n recom mends that a prima ry goal of thera py shoul d be a HBA1C of < 7% and that physi cians shoul d reeva luate the treat ment regim en in patie nts with HBA1C value s consi stent ly > 8%. <5.7% Steph l 5.7 - 6.4% Incre ased risk for diabe nate >=6.5 % Diagn ostic of diabe nate <7.0% Goal of thera py >8.0% Actio n sugge sted Not Available [facility] (Lab) [address], [place], [address], 02/01/2024 05:34:49 09/29/1909/28/2024 CBC W/DIF F WBC 5.4 10'3/ uL 3.5-10 .5 Not Available [facility] (Lab) [address], [place], [address], 09/29/2024 07:02:39 09/29/1909/28/2024 CBC W/DIF F RBC 5.16 10'6/ uL (based on docume nted legal sex) 4.30-5 .80 Not Available [facility] (Lab) [address], [place], [address], 09/29/2024 07:02:39 09/29/19 25 09/28/2024 CBC W/DIF F HGB 15.4 g/dL (based on docume nted legal sex) 13.0-1 7.5 Not Available [facility] (Lab) [address], [place], [address], 09/29/2024 07:02:39 09/29/19 25 09/28/2024 CBC W/DIF F HCT 46.4 % (based on docume nted legal sex) 38.0-5 0.0 Not Available [facility] (Lab) [address], [place], [address], 09/29/2024 07:02:39 09/29/19 25 09/28/2024 CBC W/DIF F MCV 89.9 fL 80.0-9 9.0 Not Available [facility] (Lab) [address], [place], [address], 09/29/2024 07:02:39 09/29/19 25 09/28/2024 CBC W/DIF F MCH 29.8 pg 27.0-3 4.0 Not Available [facility] (Lab) [address], [place], [address], 09/29/2024 07:02:39 09/29/19 25 09/28/2024 CBC W/DIF F MCHC 33.2 g/dL 32.0-3 5.5 Not Available [facility] (Lab) [address], [place], [address], 09/29/2024 07:02:39 09/29/19 25 09/28/2024 CBC W/DIF F RDW 13.8 % 11.0-1 5.0 Not Available [facility] (Lab) [address], [place], [address], 09/29/2024 07:02:39 09/29/19 25 09/28/2024 CBC W/DIF F plt 213 10'3/ uL 150-40 0 Not Available [facility] (Lab) [address], [place], [address], 09/29/2024 07:02:39 09/29/19 25 09/28/2024 CBC W/DIF F MPV 10.3 fL 8.8-12 .1 Not Available [facility] (Lab) [address], [place], [address], 09/29/2024 07:02:39 09/29/19 25 09/28/2024 CBC W/DIF F neutrophils 50.1 % 34.0-7 3.0 Not Available [facility] (Lab) [address] [place], [address], 09/29/2024 07:02:39 09/29/19 25 09/28/2024 CBC W/DIF F lymphocytes 37.2 % 15.0-5 0.0 Not Available [facility] (Lab) [address], [place], [address], 09/29/2024 07:02:39 09/29/19 25 09/28/2024 CBC W/DIF F monocytes 10.6 % 1.0-15 .0 Not Available [facility] (Lab) [address], [place], [address], 09/29/2024 07:02:39 09/29/19 25 09/28/2024 CBC W/DIF F eosinophils 1.5 % 0.0-8. 0 Not Available [facility] (Lab) [address] [place], [address], 09/29/2024 07:02:39 09/29/19 25 09/28/2024 CBC W/DIF F basophils 0.4 % 0.0-2. 0 Not Available [facility] (Lab) [address], [place], [address], 09/29/2024 07:02:39 09/29/1909/28/2024 CBC W/DIF F immature granulocytes 0.2 % no define d refere nce range Immat ure Granu locyt es (IG) repre sents autom ated enume ratio n of Metam yeloc ytes, Myelo cytes and Promy elocy nate when IG is < 5%. Blast s are not inclu ded in IG and repor anthony separ ately if prese nt. Not Available [facility] (Lab) [address], [place], [address], 09/29/2024 07:02:39 09/29/19 25 09/28/2024 CBC W/DIF F absolute neutrophils 2.7 10'3/ uL 1.5-8. 0 Not Available [facility] (Lab) [address], [place], [address], 09/29/2024 07:02:39 09/29/19 25 09/28/2024 CBC W/DIF F absolute lymphocytes 2.0 10'3/ uL 1.0-4. 0 Not Available [facility] (Lab) [address], [place], [address], 09/29/2024 07:02:39 09/29/19 25 09/28/2024 CBC W/DIF F absolute monocytes 0.6 10'3/ uL 0.2-1. 0 Not Available [facility] (Lab) [address], [place], [address], 09/29/2024 07:02:39 09/29/19 25 09/28/2024 CBC W/DIF F absolute eosinophils 0.1 10'3/ uL 0.0-0. 6 Not Available [facility] (Lab) [address], [place], [address], 09/29/2024 07:02:39 09/29/1909/28/2024 CBC W/DIF F absolute basophils 0.0 10'3/ uL 0.0-0. 3 Not Available [facility] (Lab) [address], [place], [address], 09/29/2024 07:02:39 09/29/1909/28/2024 CBC W/DIF F absolute immature granulocytes 0.0 10'3/ uL 0.00-0 .10 Refer ence range s for nonbi nary/ inter sex or unspe cifie d gende r patie nts have not been estab lishe d. Deshawn latif refer to the follo wing table for range s estab lishe d for cisge nder patie nts and evalu ate in the clini iqra molina xt of the indiv idual patie nt: https ://mil jaquez book. nm.or g/gen derx Not Available [facility] (Lab) [address], [place], [address], 09/29/2024 07:02:39 09/29/19 25 09/28/2024 CMP(C OMPRE HENSI VE METAB OLIC PANEL ) sodium 138 mmol/ L 133-14 6 Not Available [facility] (Lab) [address] [place], [address], 09/29/2024 07:02:40 09/29/19 25 09/28/2024 CMP(C OMPRE HENSI VE METAB OLIC PANEL ) potassium 4.5 mmol/ L 3.5-5. 1 Not Available [facility] (Lab) [address], [place], [address], 09/29/2024 07:02:40 09/29/19 25 09/28/2024 CMP(C OMPRE HENSI VE METAB OLIC PANEL ) chloride 105 mmol/ L 98-107 Not Available [facility] (Lab) [address] [place], [address], 09/29/2024 07:02:40 09/29/19 25 09/28/2024 CMP(C OMPRE HENSI VE METAB OLIC PANEL ) carbon dioxide 25 mmol/ L 21-31 Not Available [facility] (Lab) [address] [place], [address], 09/29/2024 07:02:40 09/29/19 25 09/28/2024 CMP(C OMPRE HENSI VE METAB OLIC PANEL ) anion gap 8 mmol/ L 4-13 Not Available [facility] (Lab) [address] [place], [address], 09/29/2024 07:02:40 09/29/19 25 09/28/2024 CMP(C OMPRE HENSI VE METAB OLIC PANEL ) blood urea nitrogen 19 mg/dL 7-25 Not Available [facility] (Lab) [address], [place], [address], 09/29/2024 07:02:40 09/29/19 25 09/28/2024 CMP(C OMPRE HENSI VE METAB OLIC PANEL ) creatinine 1.20 mg/dL 0.60-1 .30 Not Available [facility] (Lab) [address], [place], [address], 09/29/2024 07:02:40 09/29/19 25 09/28/2024 CMP(C OMPRE HENSI VE METAB OLIC PANEL ) egfrcr (CKD-epi 2020) 64 mL/mi n/1.7 3_m2 >=60 Not Available [facility] (Lab) [address], [place], [address], 09/29/2024 07:02:40 09/29/19 25 09/28/2024 CMP(C OMPRE HENSI VE METAB OLIC PANEL ) calcium 9.3 mg/dL 8.3-10 .5 Not Available [facility] (Lab) [address], [place], [address], 09/29/2024 07:02:40 09/29/19 25 09/28/2024 CMP(C OMPRE HENSI VE METAB OLIC PANEL ) glucose 90 mg/dL 70-100 Not Available [facility] (Lab) [address], [place], [address], 09/29/2024 07:02:40 09/29/19 25 09/28/2024 CMP(C OMPRE HENSI VE METAB OLIC PANEL ) protein, total 7.2 g/dL 6.4-8. 3 Not Available [facility] (Lab) [address], [place], [address], 09/29/2024 07:02:40 09/29/19 25 09/28/2024 CMP(C OMPRE HENSI VE METAB OLIC PANEL ) albumin 4.4 g/dL 3.5-5. 0 Not Available [facility] (Lab) [address], [place], [address], 09/29/2024 07:02:40 09/29/19 25 09/28/2024 CMP(C OMPRE HENSI VE METAB OLIC PANEL ) ALT 12 units /L 11-51 Not Available [facility] (Lab) [address], [place], [address], 09/29/2024 07:02:40 09/29/19 25 09/28/2024 CMP(C OMPRE HENSI VE METAB OLIC PANEL ) alkaline phosphatase 54 units /L 34-104 Not Available [facility] (Lab) [address], [place], [address], 09/29/2024 07:02:40 09/29/19 25 09/28/2024 CMP(C OMPRE HENSI VE METAB OLIC PANEL ) AST 17 units /L 13-39 Not Available [facility] (Lab) [address], [place], [address], 09/29/2024 07:02:40 09/29/19 25 09/28/2024 CMP(C OMPRE HENSI VE METAB OLIC PANEL ) bilirubin, total 0.6 mg/dL 0.2-1. 2 Not Available [facility] (Lab) [address], [place], [address], 09/29/2024 07:02:40 09/29/19 25 09/28/2024 HEMOG LOBIN A1C hemoglobin A1C 7.0 % 4.0-5. 6 high The [employer] n recom mends that a prima ry goal of thera vijay chowdary be a HBA1C of < 7% and that physi cians zackul d reeva luate the treat ment regim en in patie nts with HBA1C value s consi stent ly > 8%. <5.7% Steph l 5.7 - 6.4% Incre ased risk for diabe nate >=6.5 % Diagn ostic of diabe nate <7.0% Goal of thera py >8.0% Actio guerrero ramirez sted Not Available [facility] (Lab) [address], [place], [address], 09/29/2024 07:02:40 04/27/20 24 04/27/2024 MRI, naina jennifer, w/o contr ast No observ ation record ed. [email or web address] [facility] [address], [place], [address], 04/30/2024 09:47:42 Result Notes None recorded. Problems Name Problem SNOMED Code Status Onset Date Resolution Date Notes Provider Name and Address Organization Details Recorded Time Type 2 diabetes mellitus 65426109 Active 2019 Not Available [facility] 2 11:54:26 Diabetes mellitus 63726442 Active 2019 Not Available [facility] 2 11:54:26 Chronic cough 73818609 Active 2019 Not Available [facility] 2 11:54:26 History of transient ischemic attack 245270667 Active 2019 Not Available [facility] 2 11:54:25 Hyperlipid emia 65485171 Active 2019 Not Available [facility] 2 11:54:26 Osteoarthr itis of knee 277784748 Active 2019 Not Available [facility] 2 11:54:26 Chronic neck pain 1735439982553 Active 2019 Not Available [facility] 2 11:54:25 Hypertensi ve disorder 37366931 Active 2019 Not Available [facility] 2 11:54:26 Cough 43436440 Active 2020 Not Available [facility] 2 11:54:26 Chest pain 29651970 Active 2020 Not Available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
--- OUTSIDE RECORDS SUMMARY | 2025-04-01 16:08 | XMS_ITS | Clinical Summary ---
Author Organization [facility] Address [address] [place] [address] Phone Care Team Providers Care Airline Counter Agent Name Role Phone Bita Shields MD Primary Care Provider [phone] Allergies No known active allergies Medications albuterol HFA 90 mcg inhaler Take 2 Puffs by inhalation every 6 hours as needed for Wheezing or Shortness of Breath. 8.5 Gram 7 Active chlorpheniramin e-HYDROcodone (TUSSIONEX) 8-10 mg/5 mL Suspension, Sust. Release 12HR Take 5 mL by mouth every 12 hours as needed for Cough. Max Daily Amount: 10 mL 115 mL 7 Active Social History Tobacco Use Types Packs/Day Years Used Date Smoking Tobacco: Never Smokeless Tobacco: Never Alcohol Use Standard Drinks/Week Comments Yes 0 (1 standard drink = 0.6 oz pur e alcohol) Sex and Gender Information Value Date Recorded Sex Assigned at Not on file Legal Sex Male 1:27 PM MOLECULAR GENETICIST Gender Identity Not on file Sexual Orientation Not on file Last Filed Vital Signs Vital Sign Reading Time Taken Comments Blood Pressure 132/94 05/17/2017 4:30 PM MOLECULAR GENETICIST Pulse 60 05/17/2017 4:30 PM MOLECULAR GENETICIST Temperature 37.1 C (98.7 F) 05/17/2017 4:30 PM MOLECULAR GENETICIST Respiratory Rate 18 05/17/2017 4:30 PM MOLECULAR GENETICIST Oxygen Saturation 100% 05/17/2017 4:30 PM MOLECULAR GENETICIST Inhaled Oxygen Concentration - - Weight 98.9 kg (218 lb) 05/17/2017 1:49 PM MOLECULAR GENETICIST Height 190.5 cm (6' 3) 05/17/2017 1:49 PM MOLECULAR GENETICIST Body Mass Index 27.25 05/17/2017 1:49 PM MOLECULAR GENETICIST Plan of Treatment Health Maintenance Due Date Last Done Comments DTAP/TDAP/TD VACCINES (1 - Tdap) 1969 COLORECTAL SCREENING 10/31/1995 Colorectal Cancer Screening 10/31/1995 FIT-DNA Q 3 years 10/31/1995 FIT/FOBT Q 1 year 10/31/1995 Flex Sig/CT Colonography Q 5 years 10/31/1995 PNEUMOCOCCAL VACCINE 50+ YEARS (1 of 1 - PCV) 10/31/19 ZOSTER VACCINE (1 of 2) 2000 INFLUENZA VACCINE (#1) 2025 RSV VACCINE (60+ or ) (1 - 1-dose 75+ series) 2025 Insurance MEDICARE PART A AND B [employer] Care Teams Airline Counter Agent Relationship Specialty Start Date End Date Bita Shields MD PCP - General Internal Medicine 05/17/17
--- OUTSIDE RECORDS SUMMARY | 2025-04-01 16:13 | XMS_ITS | Clinical Summary ---
Author Organization [facility] Address [address] [place] [address] Care Team Providers Care Hand Hide Stretcher Name Role Phone Endy Jeffers MD Primary Care Provider [phone] Social History Tobacco Use Types Packs/Day Years Used Date Smoking Tobacco: Never Assessed Sex and Gender Information Value Date Recorded Sex Assigned at Male 10/08/2024 8:25 AM CDT Legal Sex Male 8:02 AM CDT Gender Identity Not on file Sexual Orientation Not on file Plan of Treatment Health Maintenance Due Date Last Done Comments Colorectal Cancer Screening Colonoscopy (10 Years) 1950 Kidney Health Evaluation 1950 Hepatitis C 1968 Annual Medicare Wellness Visit 10/31/2015 Hemoglobin A1C 02/18/2020 08/20/2019, 10/16/2018 Diabetes: Retinopathy Eye Exam 01/21/2022 01/22/2020 Zoster Vaccines (3 of 3) 05/23/2024 03/28/2024, 09/26 COVID-19 Vaccine ( season) 2025 03/15/2022, 09/27/2021, 04/01/2021, Additional history exists Influenza Adult (#1) 2025 03/28/2024, 03/27/2013, 04/04/2012, Additional history exists Lipid Panel 10/08/2025 10/08/2024 RSV Immunization or 60+ Years (1 - 1-dose 75+ series) 2025 DTaP, Tdap and Td Vaccines (6 - Td or Tdap) 05/16/2034 05/16/2024, 05/12/2022, 05/27/2011, Additional history exists Meningococcal Vaccine Aged Out 05/14/2011 No aramis stephanie eligible based on patient's age to complete this topic Pneumococcal Vaccine: 50+ Years Completed 03/28/2024, 04/03/2010 Meningococcal B Vaccine Aged Out No l onger eligible based on patient's age to complete this topic RSV Immunizations Under 20 Months Aged Out No longer eligible based on patient's age to complete this topic Procedures Procedure Name Priority Date/Time Associated Diagnosis Comments LIPID PANEL Routine 10/08/2024 9:19 AM CDT Fatigue Diabetes mellitus ([facility]) Essential (primary) hypertension Hyperlipidemia Prolonged posttraumatic stress disorder Personal history of transient cerebral ischemia Prostate cancer screening from Last 3 Months or Most Recently Relevant to Health Maintenance Results * LIPID PANEL (10/08/2024 9:19 AM CDT) CHOLESTEROL 136 <200.0 MG/DL 10/08/2024 12:33 PM CDT [facility] TRIGLYCERIDES 51 <150 MG/DL 10/08/2024 12:33 PM T [facility] HDL 76 >40.0 MG/DL 10/08/2024 12:33 PM T [facility] LDL (CALCULATED) 50 <100 MG/DL 10/09/19 25 12:33 PM T [facility] NON HDL CHOLESTEROL 60 <130 MG/DL 10/08 12:33 PM T [facility] CHOL/HDL RATIO 1.8 0.0 - 4.5 10/08/2024 12:33 PM T [facility] VLDL CALCULATION 10 5 - 55 MG/DL 10/08/2024 12:33 PM T [facility] LIPID INTERPRETATION 10/08/2024 12:33 PM T [facility] Comment: NIH CONCENSUS REPORT RECOMMENDATIONS: ADULT CHILD LOW RISK: CHOLESTEROL <200 <170 TRIGLYCERIDE <150 --- HDL >=60 --- LDL <100 <110 BORDERLINE: CHOLESTEROL 200-239 170-199 TRIGLYCERIDE 150-199 --- HDL 40-59 --- LDL 100-159 110-129 HIGH RISK: CHOLESTEROL >=240 >=200 TRIGLYCERIDE >=200 --- HDL <40 --- LDL >=160 >=130 10/08/2024 9:19 AM CDT Endy Jeffers MD LABORATORY Final Resu lt [facility] [address] [place] [address], [place] [phone] from Last 3 Months or Most Recently Relevant to Health Maintenance Insurance [employer] MEDICARE MEDICARE [employer] Care Teams Hand Hide Stretcher Relationship Specialty Start Date End Date Endy Jeffers MD [address] [place] [address] PCP - General FAMILY PRACTICE 10/08/24
== END 2025-04-01 16:15 | disposition home or self-care (01) ==
PROVIDERS: Emergency Provider Nurse Practitioner Family
DX: K02.9 Dental caries, unspecified (principal); I10 Essential (primary) hypertension; E11.9 Type 2 diabetes mellitus without complications; Z79.84 Long term (current) use of oral hypoglycemic drugs
CPT/HCPCS: 99213; G0463

== ENCOUNTER 2025-04-18 14:22 | Emergency (ER) | payer MEDICARE, OTHER, SELFPAY ==
[2025-04-18 14:24] VITALS: BP 156/79; PULSE 60; RESP 16; TEMP 36.4; O2SAT 100
--- NOTE | 2025-04-18 14:27 | ED.DENTAL ---
HPI - Dental/Oral General Chief complaint: Dental/Oral Stated complaint: dental pain Time Seen by Provider: 04/18/25 14:27 Source: patient Mode of arrival: ambulatory Limitations: no limitations History of Present Illness HPI Narrative: Enoc is a 74-year-old male patient presenting to the ER today for left upper and lower dental pain. He was seen in the [facility] on April 01 and was diagnosed with dental infection at that time and prescribed amoxicillin. He reports he finished all the antibiotics and his symptoms were improving however now they started back up again. He has been taking Tylenol and ibuprofen for pain and this helps alleviate his pain but he does not like taking all this medication. Rates pain 02/03 currently. Has not yet seen his dentist. 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 Related Data Home Medications ?Medication ?Instructions ?Recorded ?Confirmed ?Last Taken ?Type amlodipine 10 mg tablet mg 04/01/25 Unknown History empagliflozin 25 mg tablet 25 mg PO DAILY 04/01/25 04/01/25 Unknown History (Jardiance) losartan 100 mg tablet mg 04/01/25 Unknown History metformin 1,000 mg tablet mg 04/01/25 Unknown History Allergies Allergy/AdvReac Type Severity Reaction Status Date / Time No Known Allergies Allergy Verified 04/18/25 14:31 Review of Systems Review of Systems: Pertinent positives per HPI. Patient denies any fever, chills, rash, headache, visual changes, dizziness, cough, shortness of breath, chest pain, palpitations, nausea, vomiting, diarrhea, constipation, abdominal pain, or any urinary issues. PMFSH Comments At the time of my signature, I reviewed and agree with the nursing past medical, surgical, social, and family history. There is no relevant family history pertinent to the patient complaint. Exam Narrative: General: Well-developed, well nourished, in no apparent distress Head: Normocephalic, atraumatic Eyes: Pupils equally round and reactive to light bilaterally, EOM intact, sclera and conjunctive clear, no discharge, lids normal Ears: TMs intact and clear, ear canals clear, no drainage, grossly hearing normal. Nose: Nares patent, no discharge, no inflammation, no sinus tenderness. Mouth: Oral pharynx without lesions or masses, poor dentition, MMM. Left upper posterior molar and left lower posterior molar pain with some gingival swelling, no palpable abscess. Neck: Supple, trachea midline, no enlargement of anterior or posterior cervical nodes, no thyroid masses or goiter palpable. Cardio: Regular rate and rhythm, s1 and s2 normal, no murmur appreciated. Resp: Clear to auscultation bilaterally, no rhonchi, rales, wheezing or rubs Course Course Emergency Course: Portions of this record may have been created with voice recognition software. Vital Signs Vital signs: Vital Signs Temperature 36.4 C 04/18/25 14:24 Pulse Rate 60 04/18/25 14:24 Respiratory Rate 16 04/18/25 14:24 Blood Pressure 156/79 H 04/18/25 14:24 Pulse Oximetry 100 04/18/25 14:24 Oxygen Delivery Room Air 04/18/25 14:24 Temperature 36.4 C 04/18/25 14:24 Pulse Rate 60 04/18/25 14:24 Respiratory Rate 16 04/18/25 14:24 Blood Pressure 156/79 H 04/18/25 14:24 Pulse Oximetry 100 04/18/25 14:24 Oxygen Delivery Room Air 04/18/25 14:24 Vital signs reviewed MDM - Dental/Oral MDM Narrative Medical decision making narrative: At the time of visit patient is resting comfortably on the exam table. Patient appears to be nontoxic. C/o left upper and lower dental pain. He was seen in the [facility] on April 01 and was diagnosed with dental infection at that time and prescribed amoxicillin. He reports he finished all the antibiotics and his symptoms were improving however now they started back up again. He has been taking Tylenol and ibuprofen for pain and this helps alleviate his pain but he does not like taking all this medication. Has not yet seen his dentist. 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 On exam patient has left upper posterior molar and left lower posterior molar pain with some gingival swelling, no palpable abscess. Rates pain 8/10 currently. Patient requesting Tylenol for pain. Medications: Tylenol 1 g p.o. given in the clinic Plan: I suspect patient has dentalgia/dental infection. Prescription for Augmentin was sent to the pharmacy. Recommend follow-up with dentist as soon as possible also recommend a probiotic since you have just finished an antibiotic recently. Supportive measures were discussed with the patient and they voiced understanding discharge instructions and agrees to treatment plan. Return precautions reviewed Differential Diagnosis Differential diagnosis: Likely gingival abscess, dental caries, toothache, dental abscess, fracture of tooth and aphthous ulcer Discharge Plan Discharge Clinical Impression: Dental infection, Dentalgia Patient Disposition: Home Condition: Stable Instructions: Antibiotic Form, Toothache (ED) Additional Instructions: Tylenol 1 g p.o. given in the ER today Take medications as prescribed-Augmentin May take a probiotic daily 2 hours before 2 hours after taking the antibiotic since you recently finished antibiotics. Increase fluids and stay well hydrated May take Tylenol 1 g every 8 hours as needed for pain May take Motrin 600mg every 8 hours as needed for pain or fever May apply Orajel to the affected area to help alleviate pain May apply warm or cool compress to the affected area to help alleviate pain Follow-up with your dentist as soon as possible May return to the ER for any worsening of symptoms. Patient Language: Mongolian Prescriptions: New amoxicillin-pot clavulanate 875-125 mg tablet 1 tablet PO Q12H 10 Days Qty: 20 0RF No Action amlodipine 10 mg tablet metformin 1,000 mg tablet losartan 100 mg tablet Jardiance 25 mg tablet 25 mg PO DAILY amoxicillin 500 mg tablet 500 mg PO Q8H 10 Days Qty: 30 0RF Follow-up/Referrals: [facility] [Primary Care Provider, Medical] Time of Disposition: 14:36 Quality NIHSS Nursing Documentation ED NIHSS nursing documentation: reviewed/agree
[2025-04-18] MEDS: ACETAMINOPHEN 500 MG TABLET 1000 MG PO (14:43)
--- OUTSIDE RECORDS SUMMARY | 2025-04-18 15:23 | XMS_ITS | Clinical Summary ---
Author Organization [facility] [employer] Address [address] [place] [address] Care Team Providers Care Section Supervisor Name Role Phone Endy Jeffers MD Primary Care Provider [phone] Tiffany Gallagher MD Unavailable [phone] Source Comments [facility] [employer]non-owned Affiliates and Associated Physician Practices is amultiple site organization consisting of ambulatory clinics and hospital sitesin [place], [place], [place]. This disclosure is being madepursuant to the Care Everywhere program and may not contain all information available regarding this patient. Last updated 18.[facility] [employer] 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 Last Assessment & Plan: A1c stable at [...] Comments Blood Pressure 172/83 06/14/2023 1:36 PM HEALTH INFORMATION DIRECTOR Pulse 63 06/14/2023 1:36 PM HEALTH INFORMATION DIRECTOR Temperature 36.4 C (97.6 F) 06/14/2023 1:36 PM HEALTH INFORMATION DIRECTOR Respiratory Rate 16 06/14/2023 1:36 PM HEALTH INFORMATION DIRECTOR Oxygen Saturation 97% 06/14/2023 1:55 PM HEALTH INFORMATION DIRECTOR Inhaled Oxygen Concentration - - Weight 95.3 kg (210 lb) 06/14/2023 1:36 PM HEALTH INFORMATION DIRECTOR Height 190.5 cm (6' 3) 06/14/2023 1:36 PM HEALTH INFORMATION DIRECTOR Body Mass Index 26.25 06/14/2023 1:36 PM HEALTH INFORMATION DIRECTOR Plan of Treatment Health Maintenance Due Date [...] COMPREHENSIVE METABOLIC PANEL STAT 06/14/2023 3:47 PM HEALTH INFORMATION DIRECTOR DIABETES EYE EXAM Routine 01/22/2020 HEMOGLOBIN A1C Add on 08/20/2019 12:28 PM HEALTH INFORMATION DIRECTOR Facial droop ENDOSCOPY, COLON, SCREENING Routine 07/23/2019 7:50 AM HEALTH INFORMATION DIRECTOR MICROALB/CREAT RATIO URINE RANDOM PANEL Routine 10/16/2018 9:47 AM CDT Type 2 diabetes mellitus without complication, without long-term current use of insulin from Last 3 Months or Most Recently Relevant to Health Maintenance Results * (ABNORMAL) COMPREHENSIVE METABOLIC PANEL (06/14/2023 3:47 PM HEALTH INFORMATION DIRECTOR) BUN 16 7 - 26 mg/dL 06/14/2023 4:31 PM [facility] Creatinine 1.00 0.71 - 1.16 mg/dL 06/14/2023 4:31 PM [facility] Sodium 139 136 - 145 mmol/L 06/14/2023 4:31 PM [facility] Potassium 4.4 3.5 - 4.5 mmol/L 06/14/2023 4:31 PM [facility] Chloride 108(H) 98 - 107 mmol/L 06/14/2023 4:31 PM [facility] CO2 21(L) 22 - 29 mmol/L 06/14/2023 4:31 PM [facility] Glucose 158(H) 70 - 115 mg/dL 06/14/2023 4:31 PM [facility] Calcium 8.6 8.4 - 10.2 mg/dL 06/14/2023 4:31 PM [facility] Protein Total 7.2 6.0 - 8.3 g/dL 06/14/2023 4:31 PM [facility] Albumin 3.9 3.4 - 5.0 g/dL 06/14/2023 4:31 PM [facility] Bilirubin Total 0.5 0.2 - 1.2 mg/dL 06/14/2023 4:31 PM [facility] Alkaline Phosphatase 50 40 - 150 U/L 06/14/2023 4:31 PM [facility] ALT 13 5 - 55 U/L 06/14/2023 4:31 PM [facility] AST 18 5 - 34 U/L 06/14/2023 4:31 PM [facility] Anion Gap 10 6 - 16 06/14/2023 4:31 PM [facility] BUN/Creatinine Ratio 16 7 - 23 06/14/2023 4:31 PM [facility] Osmolality Calculated 292 275 - 295 mOsm/kg 06/14/2023 4:31 PM [facility] Albumin/Globulin Ratio 1.2 1.1 - 2.3 06/14/2023 4:31 PM [facility] eGFR by CKD-EPI 80(L) >=90 mL/min/1.7 3 m2 06/14/2023 4:31 PM [facility] Blood BLOOD SPECIMEN / Unknown Venipuncture / Unknown 06/14/2023 3:47 PM HEALTH INFORMATION DIRECTOR 06/14/2023 3:55 PM HEALTH INFORMATION DIRECTOR us Jefferson Gruber MD LAB - CHEMISTRY ORDERABLES Fi nal Result [facility] [address] [place] [address], [facility] [phone] * DIABETES EYE EXAM (01/22/2020) Scanned Document HEALTH MAINTENANCE Final Result * (ABNORMAL) HEMOGLOBIN A1C (08/20/2019 12:28 PM HEALTH INFORMATION DIRECTOR) Hemoglobin A1c 8.3(H) 4.2 - 5.6 % 08/20/2019 6:43 PM HEALTH INFORMATION DIRECTOR [facility] Estimated Average Glucose 192 mg/dL 08/20/2019 6:43 PM HEALTH INFORMATION DIRECTOR [facility] Blood BLOOD SPECIMEN / Unknown Venipuncture / Unknown 08/20/2019 12:28 PM HEALTH INFORMATION DIRECTOR 08/20/2019 12:34 PM HEALTH INFORMATION DIRECTOR Narrative [facility] - 08/20/2019 6:43 PM HEALTH INFORMATION DIRECTOR The following cutoff levels are recommended by [employer]. A1c > 6.5% : considered [...] exceeds 5% in the specimen. Eda Tovar SHIP/REC/DOC CONTROL-HEAVY LIFT RIGGER LAB - CHEMISTRY ORDERABLES Final Result [facility] [address] [place] [address] * ENDOSCOPY, COLON, SCREENING (07/23/2019 7:50 AM HEALTH INFORMATION DIRECTOR) Report Endoscopy POC _ Patient Name: Joanne Mackenzie Procedure Date: 07/23/2019 7:50 AM Date of : 1950 Admit Type: Outpatient Age: 68 Gender: Male Ethnicity: Not or Race: Black or Attending MD: Farshad Fernandes MD _ Procedure: Colonoscopy Indications: Screening for colorectal malignant neoplasm Providers: Farshad Fernandes MD (Doctor), Jamie Riggs RN, Jamia Crowley, Is Manager Referring MD: Sushant Birch MD (Referring MD) [...] present medications. Procedure Code(s): --- Professional --- 17030, Colonoscopy, flexible; with removal of tumor(s), polyp(s), or other lesion(s) by snare technique 51310, 59, Colonoscopy, flexible; with biopsy, single or multiple --- Technical --- 03940, Colonoscopy, flexible; with removal of tumor(s), polyp(s), or other lesion(s) by snare technique 40730, 59, Colonoscopy, flexible; with biopsy, single or [...] or abscess without bleeding CPT copyright 2017 [employer]. All rights reserved. The codes documented in this report are preliminary and upon medical insurance coder review may be revised to meet current compliance requirements. Farshad Fernandes MD 07/23/2019 9:01:18 AM This report has been signed electronically. Number of Addenda: 0 Note Initiated On: 07/23/2019 7:50 AM [facility] 07/23/2019 7:50 AM HEALTH INFORMATION DIRECTOR us Farshad Fernandes MD GI PROCEDURE ORDERABLES Edited R esult - Final [facility] * MICROALB/CREAT RATIO URINE RANDOM PANEL [...] within a diagnostic category. Test Performed at: [facility] [address] [address] [facility] [place] [address] ETHAN RODRIGUEZ DO,MPH Urine URINE SPECIMEN OBTAINED BY CLEAN CATCH PROCEDURE / Unknown 10/16/2018 9:47 AM CDT 10/16/2018 9:49 AM CDT Sushant Birch Jr., MD LAB - URINE CH EMISTRY ORDERABLES Final Result [email or web address] [address] [place] [address] from Last 3 Months or Most Recently Relevant to Health Maintenance Insurance MEDICARE [facility] [employer] MEDICARE ADV HMO & PPO MEDICARE [facility]/ Address: [facility] CLAIMS [address] [place] [address] Advance Directives * Full Code (Latest Code Status on File) Date Activated Date Inactivated Comments 08/20/2019 6:21 PM 08/21/2019 7:12 PM * Full Code Date Activated Date Inactivated Comments 08/20/2019 6:08 PM 08/20/2019 6:21 PM Care Teams Section Supervisor Relationship Specialty Start Date End Date Endy Jeffers MD [address], [address] PCP - General Family Medicine 09/28/19 Tiffany Gallagher MD [address] [facility], [address] Resident Internal Medicine 04/24/24
--- OUTSIDE RECORDS SUMMARY | 2025-04-18 15:23 | XMS_ITS | Clinical Summary ---
Author Organization [facility] Address [address] [place] [address] Phone Care Team Providers Care Firing Pin Gauger Name Role Phone Bita Shields MD Primary Care Provider [phone] Allergies No known active allergies Medications albuterol [...] on file Legal Sex Male 1:27 PM RESIDENTIAL WORKER Gender Identity Not on file Sexual Orientation Not on file Last Filed Vital Signs Vital Sign Reading Time Taken Comments Blood Pressure 132/94 05/17/2017 4:30 PM RESIDENTIAL WORKER Pulse 60 05/17/2017 4:30 PM RESIDENTIAL WORKER Temperature 37.1 C (98.7 F) 05/17/2017 4:30 PM RESIDENTIAL WORKER Respiratory Rate 18 05/17/2017 4:30 PM RESIDENTIAL WORKER Oxygen Saturation 100% 05/17/2017 4:30 PM RESIDENTIAL WORKER Inhaled Oxygen Concentration - - Weight 98.9 kg (218 lb) 05/17/2017 1:49 PM RESIDENTIAL WORKER Height 190.5 cm (6' 3) 05/17/2017 1:49 PM RESIDENTIAL WORKER Body Mass Index 27.25 05/17/2017 1:49 PM RESIDENTIAL WORKER Plan of Treatment Health Maintenance Due Date [...] 2025 Insurance MEDICARE PART A AND B [employer] Care Teams Firing Pin Gauger Relationship Specialty Start Date End Date Bita Shields MD PCP - General Internal Medicine 05/17/17
--- OUTSIDE RECORDS SUMMARY | 2025-04-18 15:54 | XMS_ITS | Clinical Summary ---
Author Organization [facility] [employer] Address [address] [place] [address] Care Team Providers Care Mortar Carrier Name Role Phone Endy Jeffers MD Primary Care Provider [phone]- [phone] Tiffany Gallagher MD Unavailable [phone] Source Comments [facility] [employer],non-owned Affiliates and Associated Physician Practices is amultiple site organization consisting of ambulatory clinics and hospital sitesin [place], [place], [place] and [place]. This disclosure is being madepursuant to the Care Everywhere program and may not contain all information available regarding this patient. Last updated 18.[facility] [employer] Allergies No known active allergies Medications * [...] continues to participate in group therapy at [facility] - discussed sleep hygiene practices, pt agreed [...] Retinopathy: pending - Ancillary Support: DM educator, business reporting developer Last Assessment & Plan: A1c stable at [...] Comments Blood Pressure 172/83 06/14/2023 1:36 PM OCCUPATIONAL THERAPIST'S ASSISTANT Pulse 63 06/14/2023 1:36 PM OCCUPATIONAL THERAPIST'S ASSISTANT Temperature 36.4 C (97.6 F) 06/14/2023 1:36 PM OCCUPATIONAL THERAPIST'S ASSISTANT Respiratory Rate 16 06/14/2023 1:36 PM OCCUPATIONAL THERAPIST'S ASSISTANT Oxygen Saturation 97% 06/14/2023 1:55 PM OCCUPATIONAL THERAPIST'S ASSISTANT Inhaled Oxygen Concentration - - Weight 95.3 kg (210 lb) 06/14/2023 1:36 PM OCCUPATIONAL THERAPIST'S ASSISTANT Height 190.5 cm (6' 3) 06/14/2023 1:36 PM OCCUPATIONAL THERAPIST'S ASSISTANT Body Mass Index 26.25 06/14/2023 1:36 PM OCCUPATIONAL THERAPIST'S ASSISTANT Plan of Treatment Health Maintenance Due Date [...] COMPREHENSIVE METABOLIC PANEL STAT 06/14/2023 3:47 PM OCCUPATIONAL THERAPIST'S ASSISTANT DIABETES EYE EXAM Routine 01/22/2020 HEMOGLOBIN A1C Add on 08/20/2019 12:28 PM OCCUPATIONAL THERAPIST'S ASSISTANT Facial droop ENDOSCOPY, COLON, SCREENING Routine 07/23/2019 7:50 AM OCCUPATIONAL THERAPIST'S ASSISTANT MICROALB/CREAT RATIO URINE RANDOM PANEL Routine 10/16/2018 9:47 AM CDT Type 2 diabetes mellitus without complication, without long-term current use of insulin from Last 3 Months or Most Recently Relevant to Health Maintenance Results * (ABNORMAL) COMPREHENSIVE METABOLIC PANEL (06/14/2023 3:47 PM OCCUPATIONAL THERAPIST'S ASSISTANT) BUN 16 7 - 26 mg/dL 06/14/2023 4:31 PM [facility] Creatinine 1.00 0.71 - 1.16 mg/dL 06/14/2023 4:31 PM [facility] Sodium 139 136 - 145 mmol/L 06/14/2023 4:31 PM [facility] Potassium 4.4 3.5 - 4.5 mmol/L 06/14/2023 4:31 PM [facility] Chloride 108(H) 98 - 107 mmol/L 06/14/2023 4:31 PM [facility] CO2 21(L) 22 - 29 mmol/L 06/14/2023 4:31 PM [facility] Glucose 158(H) 70 - 115 mg/dL 06/14/2023 4:31 PM [facility] Calcium 8.6 8.4 - 10.2 mg/dL 06/14/2023 4:31 PM [facility] Protein Total 7.2 6.0 - 8.3 g/dL 06/14/2023 4:31 PM [facility] Albumin 3.9 3.4 - 5.0 g/dL 06/14/2023 4:31 PM [facility] Bilirubin Total 0.5 0.2 - 1.2 mg/dL 06/14/2023 4:31 PM [facility] Alkaline Phosphatase 50 40 - 150 U/L 06/14/2023 4:31 PM [facility] ALT 13 5 - 55 U/L 06/14/2023 4:31 PM [facility] AST 18 5 - 34 U/L 06/14/2023 4:31 PM [facility] Anion Gap 10 6 - 16 06/14/2023 4:31 PM [facility] BUN/Creatinine Ratio 16 7 - 23 06/14/2023 4:31 PM [facility] Osmolality Calculated 292 275 - 295 mOsm/kg 06/14/2023 4:31 PM [facility] Albumin/Globulin Ratio 1.2 1.1 - 2.3 06/14/2023 4:31 PM [facility] eGFR by CKD-EPI 80(L) >=90 mL/min/1.7 3 m2 06/14/2023 4:31 PM [facility] Blood BLOOD SPECIMEN / Unknown Venipuncture / Unknown 06/14/2023 3:47 PM OCCUPATIONAL THERAPIST'S ASSISTANT 06/14/2023 3:55 PM OCCUPATIONAL THERAPIST'S ASSISTANT us Jefferson Gruber MD LAB - CHEMISTRY ORDERABLES Fi nal Result [facility] [address] [place] [address], [facility] [phone] * DIABETES EYE EXAM (01/22/2020) Scanned Document HEALTH MAINTENANCE Final Result * (ABNORMAL) HEMOGLOBIN A1C (08/20/2019 12:28 PM OCCUPATIONAL THERAPIST'S ASSISTANT) Hemoglobin A1c 8.3(H) 4.2 - 5.6 % 08/20/2019 6:43 PM OCCUPATIONAL THERAPIST'S ASSISTANT [facility] Estimated Average Glucose 192 mg/dL 08/20/2019 6:43 PM OCCUPATIONAL THERAPIST'S ASSISTANT [facility] Blood BLOOD SPECIMEN / Unknown Venipuncture / Unknown 08/20/2019 12:28 PM OCCUPATIONAL THERAPIST'S ASSISTANT 08/20/2019 12:34 PM OCCUPATIONAL THERAPIST'S ASSISTANT Narrative [facility] - 08/20/2019 6:43 PM OCCUPATIONAL THERAPIST'S ASSISTANT The following cutoff levels are recommended by [place] [employer]. A1c > 6.5% : considered [...] exceeds 5% in the specimen. Eda Tovar BAG PRESS OPERATOR-PRIVATE EYE LAB - CHEMISTRY ORDERABLES Final Result [facility] [address] [place] [address] * ENDOSCOPY, COLON, SCREENING (07/23/2019 7:50 AM OCCUPATIONAL THERAPIST'S ASSISTANT) Report Endoscopy POC _ Patient Name: Joanne Mackenzie Procedure Date: 07/23/2019 7:50 AM Date of : 1950 Admit Type: Outpatient Age: 68 Gender: Male Ethnicity: Not or Race: Black or Attending MD: Farshad Fernandes MD _ Procedure: Colonoscopy Indications: Screening for colorectal malignant neoplasm Providers: Farshad Fernandes MD (Doctor), Jamie Riggs RN, Jamia Crowley, Chef De Partie Referring MD: Sushant Birch MD (Referring MD) [...] present medications. Procedure Code(s): --- Professional --- 11615, Colonoscopy, flexible; with removal of tumor(s), polyp(s), or other lesion(s) by snare technique 46166, 59, Colonoscopy, flexible; with biopsy, single or multiple --- Technical --- 01460, Colonoscopy, flexible; with removal of tumor(s), polyp(s), or other lesion(s) by snare technique 24506, 59, Colonoscopy, flexible; with biopsy, single or [...] or abscess without bleeding CPT copyright 2017 [place] [employer]. All rights reserved. The codes documented in this report are preliminary and upon box toe stitcher review may be revised to meet current compliance requirements. Farshad Fernandes MD 07/23/2019 9:01:18 AM This report has been signed electronically. Number of Addenda: 0 Note Initiated On: 07/23/2019 7:50 AM [facility] 07/23/2019 7:50 AM OCCUPATIONAL THERAPIST'S ASSISTANT us Farshad Fernandes MD GI PROCEDURE ORDERABLES Edited R esult - Final [facility] * MICROALB/CREAT RATIO URINE RANDOM [...] within a diagnostic category. Test Performed at: [facility] [address] [place] [address] ETHAN RODRIGUEZ DO,MPH Urine URINE SPECIMEN OBTAINED BY CLEAN CATCH PROCEDURE / Unknown 10/16/2018 9:47 AM CDT 10/16/2018 9:49 AM CDT Sushant Birch Jr., MD LAB - URINE CH EMISTRY ORDERABLES Final Result [facility] [address] [place] [address] from Last 3 Months or Most Recently Relevant to Health Maintenance Insurance MEDICARE [facility] [employer] MEDICARE ADV HMO & PPO MEDICARE [facility]/ Address: [facility] CLAIMS [address] [place] [address] Advance Directives * Full Code (Latest Code Status on File) Date Activated Date Inactivated Comments 08/20/2019 6:21 PM 08/21/2019 7:12 PM * Full Code Date Activated Date Inactivated Comments 08/20/2019 6:08 PM 08/20/2019 6:21 PM Care Teams Mortar Carrier Relationship Specialty Start Date End Date Endy Jeffers MD [address] [facility] [facility], [address] PCP - General Family Medicine 09/28/19 Tiffany Gallagher MD [address] [facility] [facility], [address] Resident Internal Medicine 04/24/24
--- OUTSIDE RECORDS SUMMARY | 2025-04-18 15:54 | XMS_ITS | Clinical Summary ---
Author Organization [facility] Address [address] [place] [address] Phone Care Team Providers Care Intermodal Customer Service Name Role Phone Bita Shields MD Primary Care Provider [phone] Allergies No known active allergies Medications albuterol [...] on file Legal Sex Male 1:27 PM SINGLE WIRE SAW OPERATOR Gender Identity Not on file Sexual Orientation Not on file Last Filed Vital Signs Vital Sign Reading Time Taken Comments Blood Pressure 132/94 05/17/2017 4:30 PM SINGLE WIRE SAW OPERATOR Pulse 60 05/17/2017 4:30 PM SINGLE WIRE SAW OPERATOR Temperature 37.1 C (98.7 F) 05/17/2017 4:30 PM SINGLE WIRE SAW OPERATOR Respiratory Rate 18 05/17/2017 4:30 PM SINGLE WIRE SAW OPERATOR Oxygen Saturation 100% 05/17/2017 4:30 PM SINGLE WIRE SAW OPERATOR Inhaled Oxygen Concentration - - Weight 98.9 kg (218 lb) 05/17/2017 1:49 PM SINGLE WIRE SAW OPERATOR Height 190.5 cm (6' 3) 05/17/2017 1:49 PM SINGLE WIRE SAW OPERATOR Body Mass Index 27.25 05/17/2017 1:49 PM SINGLE WIRE SAW OPERATOR Plan of Treatment Health Maintenance Due Date [...] 2025 Insurance MEDICARE PART A AND B [employer] Care Teams Intermodal Customer Service Relationship Specialty Start Date End Date Bita Shields MD PCP - General Internal Medicine 05/17/17
--- OUTSIDE RECORDS SUMMARY | 2025-04-18 15:54 | XMS_ITS | Clinical Summary ---
Author Organization [facility] Address [facility] [place] [address] Care Team Providers Care Rocket Test Fire Worker Name Role Phone Endy Jeffers MD Primary Care Provider [phone] Social History Tobacco Use Types Packs/Day Years [...] on patient's age to complete this topic Hepatitis A Vaccines Aged Out 05/01/2019, 09/14/19 19 No longer eligible based on patient's age [...] 10/08/2024 9:19 AM CDT Fatigue Diabetes mellitus ([facility]) Essential (primary) hypertension Hyperlipidemia Prolonged posttraumatic stress disorder Personal history of transient cerebral ischemia Prostate cancer screening from Last 3 Months or Most Recently Relevant to Health Maintenance Results * LIPID PANEL (10/08/2024 9:19 AM CDT) CHOLESTEROL 136 <200.0 MG/DL 10/08/2024 12:33 PM [facility] TRIGLYCERIDES 51 <150 MG/DL 10/08/2024 12:33 PM [facility] HDL 76 >40.0 MG/DL 10/08/2024 12:33 PM [facility] LDL (CALCULATED) 50 <100 MG/DL 10/09/19 25 12:33 PM [facility] NON HDL CHOLESTEROL 60 <130 MG/DL 10/08 12:33 PM [facility] CHOL/HDL RATIO 1.8 0.0 - 4.5 10/08/2024 12:33 PM [facility] VLDL CALCULATION 10 5 - 55 MG/DL 10/08/2024 12:33 PM [facility] LIPID INTERPRETATION 10/08/2024 12:33 PM [facility] Comment: [facility] REPORT RECOMMENDATIONS: ADULT CHILD LOW RISK: CHOLESTEROL <200 <170 TRIGLYCERIDE <150 --- HDL >=60 --- LDL <100 <110 BORDERLINE: CHOLESTEROL 200-239 170-199 TRIGLYCERIDE 150-199 --- HDL 40-59 --- LDL 100-159 110-129 HIGH RISK: CHOLESTEROL >=240 >=200 TRIGLYCERIDE >=200 --- HDL <40 --- LDL >=160 >=130 10/08/2024 9:19 AM CDT Endy Jeffers MD LABORATORY Final Resu lt [facility] [address] [address], from Last 3 Months or Most Recently Relevant to Health Maintenance Insurance [facility] MEDICARE MEDICARE HUMAN Care Teams Rocket Test Fire Worker Relationship Specialty Start Date End Date Endy Jeffers MD [address] [place] [address] PCP - General FAMILY PRACTICE 10/08/24
--- OUTSIDE RECORDS SUMMARY | 2025-04-18 15:54 | XMS_ITS | Data Portability ---
Author Organization AD[facility] - [facility] Address [address] [place] [address] Assessment Encounter Date Assessment Date Assessment LastModified by Organization Details LastModified Time 09/01/2023 09/01/2023 Pneumodoren #1 10 drops followed by pneumodoren #2 10 drops ten minutes later Eupatorium injection Samson cocktails [email or web address] Not available 09/01/2023 14:53:56 Plan of Treatment Reminders Order Date Submit Date Provider Last Modified By Organization Details Last Modified Time Details Appointments [facility] PATIENT 2024 09:00A Ted Jeffers M.D. Not [...] vitamin D3, 25-hydro xy, serum 2023 024 [email or web address] Not available 02/06/2024 14:40:36 CBC w/ auto diff 2023 024 NEVAEH Not available 02/01/2024 05:34:45 CMP, serum or plasma 2023 024 NEVAEH Not available 02/01/2024 05:34:47 PSA, serum or plasma 2023 024 NEVAEH Not available 02/01/2024 05:34:46 lipid panel, serum 2023 024 [email or web address] Not available 02/06/2024 14:40:36 TSH, serum [...] referral 2024 025 amalic Emmanuel Huertas MD, [facility] , [place], [address], 03/11/2025 07:36:23 Procedures None recorded . Surgeries None recorded . Imaging None recorded . Medication Orders amlodipi ne 10 mg tablet 2024 025 [facility] #[id number], [address] [place] [address], [id number], 03/05/2025 14:08:16 metformi n 1,000 mg tablet 2024 025 [facility] #[id number], [address] [place] [address], [id number], 03/05/2025 14:08:25 losartan 100 mg tablet 2024 025 [facility] #[id number], [address] [place] [address], [id number], 03/05/2025 14:08:22 Patient TargetsNo targets recorded. Patient Instructions Encounter Date Encounter Id Patient Instructions Last Modified By Organization Details Last Modified Time 07/15/2023 [id number] high cholesterol : care instructions cwessling Not available 07/15/2023 12:21:44 01/30/2024 [id number] learning about t ype 2 diabetes cwessling Not available 01/30/2024 19:21:20 type 2 diabetes: care instructions cwessling Not available 01/30/2024 19:21:20 Take cyclobenzaprine regularly as prescribed. cwessling Not available 01/30/2024 19:18:56 09/28/2024 [id number] learning about t ype 2 diabetes cwessling Not available 09/28/2024 17:57:03 03/05/[id number] learning about t ype 2 diabetes cwessling [...] 4.8 10'3/ uL 3.5-10 .5 Not Available [facility] (Lab) [address], [place], [address], 02/01/2024 05:34:45 01/31/20 24 01/31/2024 CBC W/DIF F RBC 5.37 10'6/ uL (based on docume nted legal sex) 4.30-5 .80 Not Available [facility] (Lab) [address], [place], [address], 02/01/2024 05:34:45 01/31/20 24 01/31/2024 CBC W/DIF F HGB 16.0 g/dL (based on docume nted legal sex) 13.0-1 7.5 Not Available [facility] (Lab) [address], [place], [address], 02/01/2024 05:34:45 01/31/20 24 01/31/2024 CBC W/DIF F HCT 50.1 % (based on docume nted legal sex) 38.0-5 0.0 high Not Available [facility] (Lab) [address], [place], [address], 02/01/2024 05:34:45 01/31/20 24 01/31/2024 CBC W/DIF F MCV 93.3 fL 80.0-9 9.0 Not Available [facility] (Lab) [address], [place], [address], 02/01/2024 05:34:45 01/31/20 24 01/31/2024 CBC W/DIF F MCH 29.8 pg 27.0-3 4.0 Not Available [facility] (Lab) [address], [place], [address], 02/01/2024 05:34:45 01/31/20 24 01/31/2024 CBC W/DIF F MCHC 31.9 g/dL 32.0-3 5.5 low Not Available [facility] (Lab) [address] [facility], [place], [address], 02/01/2024 05:34:45 01/31/20 24 01/31/2024 CBC W/DIF F RDW 15.1 % 11.0-1 5.0 high Not Available [facility] (Lab) [address] [facility], [place], [address], 02/01/2024 05:34:45 01/31/20 24 01/31/2024 CBC W/DIF F plt 230 10'3/ uL 150-40 0 Not Available [facility] (Lab) [address] [facility], [place], [address], 02/01/2024 05:34:45 01/31/20 24 01/31/2024 CBC W/DIF F MPV 11.0 fL 8.8-12 .1 Not Available [facility] (Lab) [address] [facility], [place], [address], 02/01/2024 05:34:45 01/31/20 24 01/31/2024 CBC W/DIF F NRBC's 0.0 % 0.0 Not Available [facility] (Lab) [address] [facility], [place], [address], 02/01/2024 05:34:45 01/31/20 24 01/31/2024 CBC W/DIF F absolute NRBCs 0.0 10'3/ uL no refere nce range establ ished Not Available [facility] (Lab) [address] [facility], [place], [address], 02/01/2024 05:34:45 01/31/20 24 01/31/2024 CBC W/DIF F neutrophils 52.1 % 34.0-7 3.0 Not Available [facility] (Lab) [address] [facility], [place], [address], 02/01/2024 05:34:45 01/31/20 24 01/31/2024 CBC W/DIF F lymphocytes 35.5 % 15.0-5 0.0 Not Available [facility] (Lab) [address] [facility], [place], [address], 02/01/2024 05:34:45 01/31/20 24 01/31/2024 CBC W/DIF F monocytes 9.5 % 1.0-15 .0 Not Available [facility] (Lab) [address] [facility], [place], [address], 02/01/2024 05:34:45 01/31/20 24 01/31/2024 CBC W/DIF F eosinophils 2.1 % 0.0-8. 0 Not Available [facility] (Lab) [address] [facility], [place], [address], 02/01/2024 05:34:45 01/31/20 24 01/31/2024 CBC W/DIF F basophils 0.6 % 0.0-2. 0 Not Available [facility] (Lab) [address] [facility], [place], [address], 02/01/2024 05:34:45 01/31/20 24 01/31/2024 CBC W/DIF F immature granulocytes 0.2 % no define d refere nce range Not Available [facility] (Lab) [address] [facility], [place], [address], 02/01/2024 05:34:45 01/31/20 24 01/31/2024 CBC W/DIF F absolute neutrophils 2.5 10'3/ uL 1.5-8. 0 Not Available [facility] (Lab) [address] [place], [address], 02/01/2024 05:34:45 01/31/20 24 01/31/2024 CBC W/DIF F absolute lymphocytes 1.7 10'3/ uL 1.0-4. 0 Not Available [facility] (Lab) [address] [place], [address], 02/01/2024 05:34:45 01/31/20 24 01/31/2024 CBC W/DIF F absolute monocytes 0.5 10'3/ uL 0.2-1. 0 Not Available [facility] (Lab) [address] [facility], [place], [address], 02/01/2024 05:34:45 01/31/20 24 01/31/2024 CBC W/DIF F absolute eosinophils 0.1 10'3/ uL 0.0-0. 6 Not Available [facility] (Lab) [address] [facility], [place], [address], 02/01/2024 05:34:45 01/31/20 24 01/31/2024 CBC W/DIF F absolute basophils 0.0 10'3/ uL 0.0-0. 3 Not Available [facility] (Lab) [address] [facility], [place], [address], 02/01/2024 05:34:45 01/31/20 24 01/31/2024 CBC W/DIF [...] resul ts are expec anthony. Not Available [facility] (Lab) [address] [facility], [place], [address], 02/01/2024 05:34:45 01/31/20 24 01/31/2024 TESTO STERO NE, TOTAL testosterone , total 343 NG/dL 200-80 0 Not Available [facility] (Lab) [address] [facility], [place], [address], 02/01/2024 05:34:46 01/31/20 24 01/31/2024 PSA TOTAL (DIAG NOSTI C) PSA, total 2.39 NG/mL 0.00-4 .00 This assay was perfo rmed using Beckm an Coult er reage nts and test kits. Value s obtai bipin with other assay metho ds or kits canno t be used inter mercado eably . Not Available [facility] (Lab) [address] [facility], [place], [address], 02/01/2024 05:34:46 01/31/20 24 01/31/2024 LIPID PANEL ,AMA (LDL- CALC) total cholesterol 124 mg/dL 0-199 Not Available [facility] (Lab) [address] [place], [address], 02/01/2024 05:34:47 01/31/20 24 01/31/2024 LIPID PANEL ,AMA (LDL- CALC) triglyceride s 53 mg/dL 0-150 NCEP Refer ence Value s for Trigl yceri radha: Steph l: <150 mg/dL Borde rline High: 150 - 199 mg/dL High: 200 - 499 mg/dL Very High: >/= 500 mg/dL Not Available [facility] (Lab) [address] [place], [address], 02/01/2024 05:34:47 01/31/20 24 01/31/2024 LIPID PANEL ,AMA (LDL- CALC) HDL cholesterol 63 mg/dL >40 Not Available [facility] (Lab) [address] [place], [address], 02/01/2024 05:34:47 01/31/20 24 01/31/2024 LIPID PANEL [...] mg/dL , HDL <40 mg/dL Not Available [facility] (Lab) [address] [facility], [place], [address], 02/01/2024 05:34:47 01/31/2001/31/2024 LIPID PANEL ,AMA (LDL- CALC) non-HDL cholesterol 61 mg/dL no refere nce range A reaso nable goal for non-H DL surekha stero l is one that is 30 mg/dL highe r than the LDL surekha stero l goal. Not Available [facility] (Lab) [address] [facility], [place], [address], 02/01/2024 05:34:47 01/31/2001/31/2024 LIPID PANEL ,AMA (LDL- CALC) chol/HDL ratio 2.0 . 0.0-5. 0 On October 19, 2022, [facility] labor atori es rogelio ed the equat [...] n. 2017Jun 28;137 (1):1 0-19. Not Available [facility] (Lab) [address] [facility], [place], [address], 02/01/2024 05:34:47 01/31/20 24 01/31/2024 CMP(C OMPRE HENSI VE METAB OLIC PANEL ) sodium 139 mmol/ L 133-14 6 Not Available [facility] (Lab) [address] [facility], [place], [address], 02/01/2024 05:34:47 01/31/20 24 01/31/2024 CMP(C OMPRE HENSI VE METAB OLIC PANEL ) potassium 4.5 mmol/ L 3.5-5. 1 Not Available [facility] (Lab) [address] [facility], [place], [address], 02/01/2024 05:34:47 01/31/20 24 01/31/2024 CMP(C OMPRE HENSI VE METAB OLIC PANEL ) chloride 104 mmol/ L 98-107 Not Available [facility] (Lab) [address] [place], [address], 02/01/2024 05:34:47 01/31/20 24 01/31/2024 CMP(C OMPRE HENSI VE METAB OLIC PANEL ) carbon dioxide 26 mmol/ L 21-31 Not Available [facility] (Lab) [address] [place], [address], 02/01/2024 05:34:47 01/31/20 24 01/31/2024 CMP(C OMPRE HENSI VE METAB OLIC PANEL ) anion gap 9 mmol/ L 4-13 Not Available [facility] (Lab) [address] [facility], [place], [address], 02/01/2024 05:34:47 01/31/20 24 01/31/2024 CMP(C OMPRE HENSI VE METAB OLIC PANEL ) blood urea nitrogen 16 mg/dL 7-25 Not Available [facility] (Lab) [address] [facility], [place], [address], 02/01/2024 05:34:47 01/31/20 24 01/31/2024 CMP(C OMPRE HENSI VE METAB OLIC PANEL ) creatinine 1.09 mg/dL 0.60-1 .30 Not Available [facility] (Lab) [address] [facility], [place], [address], 02/01/2024 05:34:47 01/31/20 24 01/31/2024 CMP(C OMPRE HENSI VE METAB OLIC PANEL ) egfrcr (CKD-epi 2020) 72 mL/mi n/1.7 3_m2 >=60 Not Available [facility] (Lab) [address] [facility], [place], [address], 02/01/2024 05:34:47 01/31/20 24 01/31/2024 CMP(C OMPRE HENSI VE METAB OLIC PANEL ) calcium 9.3 mg/dL 8.3-10 .5 Not Available [facility] (Lab) [address] [place], [address], 02/01/2024 05:34:47 01/31/20 24 01/31/2024 CMP(C OMPRE HENSI VE METAB OLIC PANEL ) glucose 106 mg/dL 70-100 high Not Available [facility] (Lab) [address] [place], [address], 02/01/2024 05:34:47 01/31/20 24 01/31/2024 CMP(C OMPRE HENSI VE METAB OLIC PANEL ) protein, total 7.2 g/dL 6.4-8. 3 Not Available [facility] (Lab) [address] [facility] [place], [address], 02/01/2024 05:34:47 01/31/20 24 01/31/2024 CMP(C OMPRE HENSI VE METAB OLIC PANEL ) albumin 4.5 g/dL 3.5-5. 0 Not Available [facility] (Lab) [address] [facility], [place], [address], 02/01/2024 05:34:47 01/31/20 24 01/31/2024 CMP(C OMPRE HENSI VE METAB OLIC PANEL ) ALT 12 units /L 11-51 Not Available [facility] (Lab) [address] [facility], [place], [address], 02/01/2024 05:34:47 01/31/20 24 01/31/2024 CMP(C OMPRE HENSI VE METAB OLIC PANEL ) alkaline phosphatase 54 units /L 34-104 Not Available [facility] (Lab) [address] [facility], [place], [address], 02/01/2024 05:34:47 01/31/20 24 01/31/2024 CMP(C OMPRE HENSI VE METAB OLIC PANEL ) AST 14 units /L 13-39 Not Available [facility] (Lab) [address] [facility], [place], [address], 02/01/2024 05:34:47 01/31/20 24 01/31/2024 CMP(C OMPRE HENSI VE METAB OLIC PANEL ) bilirubin, total 0.6 mg/dL 0.2-1. 2 Not Available [facility] (Lab) [address] [facility], [place], [address], 02/01/2024 05:34:47 01/31/20 24 01/31/2024 TSH TSH 2.21 uIU/m L 0.30-5 .33 Not Available [facility] (Lab) [address] [place], [address], 02/01/2024 05:34:48 01/31/20 24 01/31/2024 RUDY TIN / IRON / TRANS RUDY N / TIBC iron 79 ug/dL 60-175 Not Available [facility] (Lab) [address] [place], [address], 02/01/2024 05:34:48 01/31/20 24 01/31/2024 RUDY TIN / IRON / TRANS RUDY N / TIBC transferrin 266 mg/dL 200-36 0 Not Available [facility] (Lab) [address] [facility], [place], [address], 02/01/2024 05:34:48 01/31/20 24 01/31/2024 RUDY TIN / IRON / TRANS RUDY N / TIBC ferritin 115.4 NG/mL 24.0-3 36.0 Not Available [facility] (Lab) [address] [facility], [place], [address], 02/01/2024 05:34:48 01/31/20 24 01/31/2024 RUDY TIN / IRON / TRANS RUDY N / TIBC TIBC 372 ug/dL 250-45 0 Not Available [facility] (Lab) [address] [place], [address], 02/01/2024 05:34:48 01/31/20 24 01/31/2024 RUDY TIN / IRON / TRANS RUDY N / TIBC iron saturation 21 % 20-55 Not Available [facility] (Lab) [address] [place], [address], 02/01/2024 05:34:48 01/31/20 24 01/31/2024 VITAM IN B12 / FOLAT E PANEL vitamin B12 548 pg/mL 180-91 4 Steph l Range : 180-9 14 pg/mL . Indet ermin ate Range : 145-1 80 pg/mL . Defic ient Range : <=145 pg/mL . Not Available [facility] (Lab) [address] [place], [address], 02/01/2024 05:34:49 08/06/20 24 01/31/2024 VITAM IN B12 / FOLAT E PANEL folate, serum 11.4 NG/mL 6.0-20 .0 Not Available [facility] (Lab) [address], [place], [address], 02/01/2024 05:34:49 01/31/20 24 01/31/2024 HEMOG LOBIN [...] >8.0% Actio n sugge sted Not Available [facility] (Lab) [address], [place], [address], 02/01/2024 05:34:49 09/29/1909/28/2024 CBC W/DIF F WBC 5.4 10'3/ uL 3.5-10 .5 Not Available [facility] (Lab) [address], [place], [address], 09/29/2024 07:02:39 09/29/1909/28/2024 CBC W/DIF F RBC 5.16 10'6/ uL (based on docume nted legal sex) 4.30-5 .80 Not Available [facility] (Lab) [address], [place], [address], 09/29/2024 07:02:39 09/29/19 25 09/28/2024 CBC W/DIF F HGB 15.4 g/dL (based on docume nted legal sex) 13.0-1 7.5 Not Available [facility] (Lab) [address], [place], [address], 09/29/2024 07:02:39 09/29/19 25 09/28/2024 CBC W/DIF F HCT 46.4 % (based on docume nted legal sex) 38.0-5 0.0 Not Available [facility] (Lab) [address] [facility], [place], [address], 09/29/2024 07:02:39 09/29/19 25 09/28/2024 CBC W/DIF F MCV 89.9 fL 80.0-9 9.0 Not Available [facility] (Lab) [address] [facility], [place], [address], 09/29/2024 07:02:39 09/29/19 25 09/28/2024 CBC W/DIF F MCH 29.8 pg 27.0-3 4.0 Not Available [facility] (Lab) [address] [facility], [place], [address], 09/29/2024 07:02:39 09/29/19 25 09/28/2024 CBC W/DIF F MCHC 33.2 g/dL 32.0-3 5.5 Not Available [facility] (Lab) [address] [facility], [place], [address], 09/29/2024 07:02:39 09/29/19 25 09/28/2024 CBC W/DIF F RDW 13.8 % 11.0-1 5.0 Not Available [facility] (Lab) [address] [facility], [place], [address], 09/29/2024 07:02:39 09/29/19 25 09/28/2024 CBC W/DIF F plt 213 10'3/ uL 150-40 0 Not Available [facility] (Lab) [address] [facility], [place], [address], 09/29/2024 07:02:39 09/29/19 25 09/28/2024 CBC W/DIF F MPV 10.3 fL 8.8-12 .1 Not Available [facility] (Lab) [address] [facility], [place], [address], 09/29/2024 07:02:39 09/29/19 25 09/28/2024 CBC W/DIF F neutrophils 50.1 % 34.0-7 3.0 Not Available [facility] (Lab) [address] [place], [address], 09/29/2024 07:02:39 09/29/19 25 09/28/2024 CBC W/DIF F lymphocytes 37.2 % 15.0-5 0.0 Not Available [facility] (Lab) [address] [facility], [place], [address], 09/29/2024 07:02:39 09/29/19 25 09/28/2024 CBC W/DIF F monocytes 10.6 % 1.0-15 .0 Not Available [facility] (Lab) [address] [facility], [place], [address], 09/29/2024 07:02:39 09/29/19 25 09/28/2024 CBC W/DIF F eosinophils 1.5 % 0.0-8. 0 Not Available [facility] (Lab) [address] [place], [address], 09/29/2024 07:02:39 09/29/19 25 09/28/2024 CBC W/DIF F basophils 0.4 % 0.0-2. 0 Not Available [facility] (Lab) [address] [facility], [place], [address], 09/29/2024 07:02:39 09/29/1909/28/2024 CBC W/DIF F immature granulocytes 0.2 % no define d refere nce range Immat ure Granu locyt es (IG) repre sents autom ated enume ratio n of Metam yeloc ytes, Myelo cytes and Promy elocy nate when IG is < 5%. Blast s are not inclu ded in IG and repor anthony separ ately if prese nt. Not Available [facility] (Lab) [address] [facility], [place], [address], 09/29/2024 07:02:39 09/29/19 25 09/28/2024 CBC W/DIF F absolute neutrophils 2.7 10'3/ uL 1.5-8. 0 Not Available [facility] (Lab) [address] [facility], [place], [address], 09/29/2024 07:02:39 09/29/19 25 09/28/2024 CBC W/DIF F absolute lymphocytes 2.0 10'3/ uL 1.0-4. 0 Not Available [facility] (Lab) [address] [facility], [place], [address], 09/29/2024 07:02:39 09/29/19 25 09/28/2024 CBC W/DIF F absolute monocytes 0.6 10'3/ uL 0.2-1. 0 Not Available [facility] (Lab) [address] [facility], [place], [address], 09/29/2024 07:02:39 09/29/19 25 09/28/2024 CBC W/DIF F absolute eosinophils 0.1 10'3/ uL 0.0-0. 6 Not Available [facility] (Lab) [address] [facility], [place], [address], 09/29/2024 07:02:39 09/29/1909/28/2024 CBC W/DIF F absolute basophils 0.0 10'3/ uL 0.0-0. 3 Not Available [facility] (Lab) [address] [facility], [place], [address], 09/29/2024 07:02:39 09/29/1909/28/2024 CBC W/DIF F absolute [...] jaquez book. nm.or g/gen derx Not Available [facility] (Lab) [address] [facility], [place], [address], 09/29/2024 07:02:39 09/29/19 25 09/28/2024 CMP(C OMPRE HENSI VE METAB OLIC PANEL ) sodium 138 mmol/ L 133-14 6 Not Available [facility] (Lab) [address] [place], [address], 09/29/2024 07:02:40 09/29/19 25 09/28/2024 CMP(C OMPRE HENSI VE METAB OLIC PANEL ) potassium 4.5 mmol/ L 3.5-5. 1 Not Available [facility] (Lab) [address] [facility], [place], [address], 09/29/2024 07:02:40 09/29/19 25 09/28/2024 CMP(C OMPRE HENSI VE METAB OLIC PANEL ) chloride 105 mmol/ L 98-107 Not Available [facility] (Lab) [address] [place], [address], 09/29/2024 07:02:40 09/29/19 25 09/28/2024 CMP(C OMPRE HENSI VE METAB OLIC PANEL ) carbon dioxide 25 mmol/ L 21-31 Not Available [facility] (Lab) [address] [place], [address], 09/29/2024 07:02:40 09/29/19 25 09/28/2024 CMP(C OMPRE HENSI VE METAB OLIC PANEL ) anion gap 8 mmol/ L 4-13 Not Available [facility] (Lab) [address] [place], [address], 09/29/2024 07:02:40 09/29/19 25 09/28/2024 CMP(C OMPRE HENSI VE METAB OLIC PANEL ) blood urea nitrogen 19 mg/dL 7-25 Not Available [facility] (Lab) [address] [facility], [place], [address], 09/29/2024 07:02:40 09/29/19 25 09/28/2024 CMP(C OMPRE HENSI VE METAB OLIC PANEL ) creatinine 1.20 mg/dL 0.60-1 .30 Not Available [facility] (Lab) [address] [facility], [place], [address], 09/29/2024 07:02:40 09/29/19 25 09/28/2024 CMP(C OMPRE HENSI VE METAB OLIC PANEL ) egfrcr (CKD-epi 2020) 64 mL/mi n/1.7 3_m2 >=60 Not Available [facility] (Lab) [address] [facility], [place], [address], 09/29/2024 07:02:40 09/29/19 25 09/28/2024 CMP(C OMPRE HENSI VE METAB OLIC PANEL ) calcium 9.3 mg/dL 8.3-10 .5 Not Available [facility] (Lab) [address] [facility], [place], [address], 09/29/2024 07:02:40 09/29/19 25 09/28/2024 CMP(C OMPRE HENSI VE METAB OLIC PANEL ) glucose 90 mg/dL 70-100 Not Available [facility] (Lab) [address] [facility], [place], [address], 09/29/2024 07:02:40 09/29/19 25 09/28/2024 CMP(C OMPRE HENSI VE METAB OLIC PANEL ) protein, total 7.2 g/dL 6.4-8. 3 Not Available [facility] (Lab) [address] [facility], [place], [address], 09/29/2024 07:02:40 09/29/19 25 09/28/2024 CMP(C OMPRE HENSI VE METAB OLIC PANEL ) albumin 4.4 g/dL 3.5-5. 0 Not Available [facility] (Lab) [address] [facility], [place], [address], 09/29/2024 07:02:40 09/29/19 25 09/28/2024 CMP(C OMPRE HENSI VE METAB OLIC PANEL ) ALT 12 units /L 11-51 Not Available [facility] (Lab) [address] [facility], [place], [address], 09/29/2024 07:02:40 09/29/19 25 09/28/2024 CMP(C OMPRE HENSI VE METAB OLIC PANEL ) alkaline phosphatase 54 units /L 34-104 Not Available [facility] (Lab) [address] [facility], [place], [address], 09/29/2024 07:02:40 09/29/19 25 09/28/2024 CMP(C OMPRE HENSI VE METAB OLIC PANEL ) AST 17 units /L 13-39 Not Available [facility] (Lab) [address] [facility], [place], [address], 09/29/2024 07:02:40 09/29/19 25 09/28/2024 CMP(C OMPRE HENSI VE METAB OLIC PANEL ) bilirubin, total 0.6 mg/dL 0.2-1. 2 Not Available [facility] (Lab) [address] [facility], [place], [address], 09/29/2024 07:02:40 09/29/19 25 09/28/2024 HEMOG LOBIN [...] >8.0% Actio guerrero ramirez sted Not Available [facility] (Lab) [address], [place], [address], 09/29/2024 07:02:40 04/27/20 24 04/27/2024 MRI, naina jennifer, w/o contr ast No observ ation record ed. [email or web address] [facility] [address], [place], [address], 04/30/2024 09:47:42 Result Notes None recorded. Problems Name Problem SNOMED Code Status Onset Date Resolution Date Notes Provider Name and Address Organization Details Recorded Time Type 2 diabetes mellitus 36537695 Active 2019 Not Available [facility] 2 11:54:26 Diabetes mellitus 53580808 Active 2019 Not Available [facility] 2 11:54:26 Chronic cough 80406178 Active 2019 Not Available [facility] 2 11:54:26 History of transient ischemic attack 388377702 Active 2019 Not Available [facility] 2 11:54:25 Hyperlipid emia 08760237 Active 2019 Not Available [facility] 2 11:54:26 Osteoarthr itis of knee 173187606 Active 2019 Not Available [facility] 2 11:54:26 Chronic neck pain 4129307988512 Active 2019 Not Available [facility] 2 11:54:25 Hypertensi ve disorder 71086853 Active 2019 Not Available [facility] 2 11:54:26 Cough 41126147 Active 2020 Not Available [facility] 2 11:54:26 Chest pain 06510793 Active 2020 Not Available [facility] 2 11:54:26 Chronic bronchitis 42666370 Active 2021 Not Available [facility] 2 11:54:26 Chronic post-traum atic stress disorder 664892275 Active 2021 Not Available [facility] 2 11:54:26 Bronchiect asis 79560131 Active 2021 Not Available [facility] 2 11:54:26 Post-traum atic stress disorder 36102599 Active 2021 Not Available [facility] 2 11:54:25 Coronary arterioscl erosis 31399672 Active 2021 Not Available [facility] 2 11:54:26 Acute sinusitis 77054821 Active 2023 Endy Jeffers MD [address] [place], [address] , [facility] 4 14:30:51 Chronic pain of right upper limb [id number] 9108 Active 2024 Endy Jeffers MD [address] [place], [address] , [facility] 5 13:57:51 Problem Notes None recorded. Procedures Surgical History Date Name Laterality Status Provider Name and Address Organization Details Recorded Time Appendectomy completed Derrek Jerry [facility] 08/29/2019 15:50:52 Knee Surgery [facility] 08/29/2019 15:51:07 Imaging Results None recorded. Procedure Notes None recorded. Medical Equipment None Reported. Allergies No known drug allergies Medications Name Sig Start Date Stop Date Status Note LastModified by Organization Details LastModified Time Pneumodoron 2 10 drops qid 04/11 completed Not Available Not Available Not Available Pneumodoron 1 10 drops qid 04/11 completed [...] Available Not Available No t Available [employer]Style [place] Lite kit active Not Available Not Available [...] Address Organization Details Last Updated DateTime 4 20174.2 g 26.8 kg/m2 190.5 cm 97.2 [degF] 57 /min 149/80 mm[Hg] Derrek Akbar [facility] 4 10:50:02 Date Recorded Body height Body mass index (BMI) Body weight Body temperature Heart rate Systolic And Diastolic Provider Name and Address Organization Details Last Updated DateTime 4 190.5 cm 26.4 kg/m2 82732.1 5 g 97 [degF] 60 /min 137/77 mm[Hg] Derrek Akbar [facility] 4 14:10:30 Date Recorded Body height Body mass index (BMI) Body weight Heart rate Body temperature Systolic And Diastolic Provider Name and Address Organization Details Last Updated DateTime 5 190.5 cm 26.1 kg/m2 77879.8 1 g 57 /min 97 [degF] 137/81 mm[Hg] Floridalma [facility] 5 16:36:02 Date Recorded Body height Heart rate Body temperature Systolic And Diastolic Provider Name and Address Organization Details Last Updated DateTime 01/30/2024 190.5 cm 60 /min 97 [degF] 160/82 mm[Hg] Janae Higgins [facility] 01/30/2024 18:22:49 Date Recorded Body mass index (BMI) Body weight Provider Name and Address Organization Details Last Updated DateTime 01/30/2024 25.5 kg/m2 49019.84 g Floridalma Robb [facility] 01/30/2024 18:32:55 Date Recorded Body height Body mass index (BMI) Body weight Heart rate Body temperature Systolic And Diastolic Provider Name and Address Organization Details Last Updated DateTime 5 190.5 cm 25.7 kg/m2 66285.3 1 g 56 /min 97.2 [degF] 131/73 [...] N High Cholesterol Y Liver Disease N Headaches N Fibromyalgia N Kidney Disease N Ear or Hearing Problems N Thyroid Problems N Skin Problems N Anemia N Constipation N Mental Illness N Diabetes Y Bedwetting N Seizures/Epilepsy N Heart Problems/Murmur N Tuberculosis N Diverticulitis N Asthma N [...] ICD10 Code Diagnosis IMO Codes Diagnosis Note [id number] Endy Jeffers MD Main Office [address] [place] [address] 15459-041 3 08/29/2019 15:21:54 08/29/2019 17:23:54 Hypertensive disorder 60031554 I10 Chronic neck pain 478319 0363 107 M54.2 Osteoarthr itis of knee 536563872 M17.9 Diabetes mellitus 184046 09 E11.9 [id number] Endy Jeffers MD Main Office [address] [place] [address] 40899-350 3 10/31/2019 12:26:31 10/31/2019 14:22:38 Diabetes mellitus 70209394 E11.9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
== END 2025-04-18 15:12 | disposition home or self-care (01) ==
LOC: ANHED 14:49
PROVIDERS: Emergency Provider Nurse Practitioner Family
DX: K04.7 Periapical abscess without sinus (principal)
CPT/HCPCS: 99283; A9270

== ENCOUNTER 2025-05-07 16:55 | Emergency (ER) | payer MEDICARE, OTHER, SELFPAY ==
--- NOTE | 2025-05-07 16:56 | ED.DENTAL ---
HPI - Dental/Oral General Chief complaint: Dental/Oral Stated complaint: dental/oral/shoulder Time Seen by Provider: 05/07/25 16:56 Source: patient Mode of arrival: ambulatory Limitations: no limitations History of Present Illness HPI Narrative: Patient is a 74-year-old male that presents with dental pain. Patient was seen here 04/01 and 04/18 for same dental infection. Patient has not yet seen dentist as he has to go through the [facility]. patient was seen by [facility] 05/02 and given referral for dentist for a root canal but is not scheduled. Patient also complaining of right shoulder pain after doing yd work this weekend. Patient states he has had intermittent in shoulder pain and issues over the last year and has been to physical therapy. Patient has not taken anything for symptoms. Related Data Home Medications ?Medication ?Instructions ?Recorded ?Confirmed ?Last Taken ?Type amlodipine 10 mg tablet mg 04/01/25 Unknown History empagliflozin 25 mg tablet 25 mg PO DAILY 04/01/25 04/01/25 Unknown History (Jardiance) losartan 100 mg tablet mg 04/01/25 Unknown History metformin 1,000 mg tablet mg 04/01/25 Unknown History Allergies Allergy/AdvReac Type Severity Reaction Status Date / Time No Known Allergies Allergy Verified 05/07/25 17:08 Review of Systems Review of Systems: All systems reviewed & are unremarkable except as noted in HPI and below Constitutional: Constitutional: Denies body ache(s), Denies fever(s), Denies headache(s), Denies malaise and Denies weakness Eyes: Eyes: Denies loss of vision ENT: Denies otalgia, Reports facial pain (jaw), Denies headache(s), Denies nasal discharge, Denies sinus pain and Denies sore throat Cardiovascular: Cardiovascular: Denies chest pain, Denies irregular heart rhythm and Denies dyspnea Respiratory: Respiratory: Denies dyspnea Gastrointestinal: Gastrointestinal: Denies abdominal pain, Denies melena, Denies hematochezia, Denies diarrhea, Denies nausea and Denies vomiting Musculoskeletal: Musculoskeletal: Denies back pain, Denies myalgias and Reports arthralgias Integumentary/Breasts: Skin/Breast: Denies pruritus and Denies rash Neurologic: Denies headache(s), Denies loss of vision and Denies weakness Psychiatric: Psychiatric: Reports no additional psychiatric complaints PMFSH Comments At time of signature, agree with nursing past medical, surgical, social and family history. There is no relevant family history pertinent to the presenting complaint. Exam Const: General: cooperative, healthy appearing, comfortable, no acute distress and well nourished Nutritional Appearance: well nourished Orientation/consciousness: patient oriented x3 Limitations: no limitations HENMT: Head: normal to inspection, normocephalic and atraumatic Ears: hearing grossly normal bilaterally, external ears normal, TM's normal bilaterally and mastoids normal bilaterally Face/Nose/Sinus: Normal external nose present, normal facial exam and face symmetric Face and sinus: normal facial exam and face symmetric Mouth: Yes Normal oral and palatal mucosa present, Yes lip normal, Yes tongue normal, Yes Normal salivary glands and ducts present and Yes moist mucous membranes Teeth and gingiva: fair dentition and multiple restorations Teeth image:  1. Tooth that is painful on palpation but no surrounding gingival swelling or redness. No exposed root or severe decay Other: The tooth in question is very carious and the gum is swollen and tender around it. There is no facial swelling, cervical or submandibular lymphadenopathy. The patient appears uncomfortable and in pain. Eyes: General: appearance normal, both eyes and all related structures Alignment and Position: alignment normal and position normal Periorbital: periorbital findings normal Eyelids: eyelids normal Pupils: Equal, round and reactive pupils present EOM: EOMs intact bilaterally Neck: Neck: normal visual inspection, full ROM, no lymphadenopathy and supple Chest: Chest palpation & inspection: normal inspection of the chest Resp: Effort & Inspection: normal respiratory effort and able to speak in complete sentences Auscultation: clear to auscultation bilaterally Cardio: Rate: regular rate Rhythm: regular rhythm Heart sounds: S1 normal heart sound present and S2 normal heart sound present GI: Inspection: normal to inspection Skin: General skin exam: normal color and no rashes or lesions noted Neuro: General: patient oriented x3 and moves all extremities Cranial nerves: Yes Equal, round and reactive pupils present Speech: normal speech Gait exam (Neuro): Normal gait present Extrem: General: normal to inspection, full ROM and no edema Right upper extremity: shoulder/upper arm normal to inspection, axillary nerve sensory function normal and normal ROM; no tenderness and no swelling and elbow/forearm normal to inspection, normal ROM and distal pulses intact; no tenderness and no swelling Psych: Appearance: grossly normal and well kempt Mental Status: mental status grossly normal Speech and movement: Normal speech and movement present Affect: normal affect Attitude: cooperative Thought process: Normal thought process present Course Course Emergency Course: Patient is aware of diagnosis, understands and agrees to treatment plan. Anticipatory guidance given. Patient agrees to follow-up as directed and is aware of reasons to seek care at the emergency department. Portions of this record may have been created with voice recognition software Level of Care: Express Care Visit Vital Signs Vital signs: Vital Signs Temperature 36.5 C 05/07/25 17:04 Pulse Rate 57 L 05/07/25 17:04 Respiratory Rate 18 05/07/25 17:04 Blood Pressure 150/75 H 05/07/25 17:04 Oxygen Delivery Room Air 05/07/25 17:04 Temperature 36.5 C 05/07/25 17:04 Pulse Rate 57 L 05/07/25 17:04 Respiratory Rate 18 05/07/25 17:04 Blood Pressure 150/75 H 05/07/25 17:04 Oxygen Delivery Room Air 05/07/25 17:04 Reviewed MDM - Dental/Oral MDM Narrative Medical decision making narrative: Patients pain and complaint coupled with physical findings are consistant with dentalgia. There are no focal signs of space occupying lesions that are compromising to the airway; no dysphagia, odynophagia, dysphonia, or dyspnea. No uvular deviation or soft palate edema. Patient is non-toxic appearing. The floor of the mouth is soft with no signs of Eddie's Angina; no induration below mandible, no neck pain. Patient is without trismus or drooling and able to swallow secretions. Patient is felt appropriate for discharge home with dental follow up. Will send in antibiotics but patient to do watchful waiting as there is no obvious sign of infection and start taking pain medication. If not improving start antibiotics. Patient states antibiotics has not improved pain the last 2 times but the pain medicine did. The R shoulder is without obvious asymmetry or deformity when comparing to L shoulder. No surface trauma, ecchymosis, crepitus. No bony deformity of the humerus head. No erythema, warmth, swelling to palpate. Nontender to palpate over the clavicle, A to C joint, acromion, scapula, or humeral head. Nontender to palpations of the bicipital groove or soft tissue. Then nontender to palpate of the muscles of the sternocleidomastoid, pectoris, biceps/triceps, deltoid, trapezius, rhomboid, latissimus dorsi is, or rotator cuff. No pain or limitation with active or passive abduction/abduction, internal, external rotation, flexion/extension. Distal motor is a normal vascular status is intact. Pt well hydrated appearing, in no respiratory distress, hemodynamically stable. Recommend supportive care. The patient is stable at time of discharge the clinical impression was discussed and the patient was given the opportunity to ask questions, which were addressed as completely as possible given the information available at present. Anticipatory guidance and return to care precautions were discussed and the importance of primary care follow-up was stressed and encouraged. The patient voiced understanding of the plan, indications to return, and the need for follow-up. Exam findings show no acute concerns or changes Patient is appropriate for outpatient treatment and follow-up. Differential Diagnosis Differential diagnosis: Likely gingival abscess, dental caries, toothache, dental abscess and other (Shoulder strain) Medical Records Attestation: I reviewed the patient's medical records. Discharge Plan Discharge Clinical Impression: Toothache, Right shoulder strain Patient Disposition: Home Condition: Stable Instructions: Toothache (ED) Additional Instructions: Brushing teeth at least twice daily with gentle flossing. Avoid temperature extremes---when you eat. Salt gargle to rinse your mouth after every meal You may apply ice to the face to reduce pain/swelling. For pain, you may take: Tylenol 650-1000mg by mouth every 4-6 hours. Do not exceed 4000mg in 24 hours. Advil (Ibuprofen) 600 mg by mouth every 6 hours. Do not exceed 2400mg in 24 hours. 8 AM: Tylenol 11 AM: Ibuprofen 2 PM: Tylenol 5 PM: Ibuprofen 8 PM: Tylenol 11 PM: Ibuprofen 2 AM: Tylenol 5 AM: Ibuprofen Also, recommend regular dental check up one-two times a year to prevent tooth decay and other periodontal disease. Follow-up with the dentist as soon as possible--see the list provided Your blood pressure was elevated above 120/80 today at Urgent Care. This puts you above the threshold for follow up visit with a primary care provider. High blood pressure does not usually cause any symptoms, however it may lead to kidney failure, stroke, heart disease just to name a few if untreated . Many people are anxious when seeing a provider or nurse. As a result, you are not diagnosed with hypertension at this time unless your blood pressure is persistently high at two office visits at least one week apart. Some things that can help lower blood pressure are lifestyle modifications, such as light exercise, decreased salt in diet, and weight loss. It is important to follow up with a PCP about this within 1 week. Patient Language: Singaporean Prescriptions: New ibuprofen 600 mg tablet 600 mg PO TID Qty: 30 0RF amoxicillin-pot clavulanate 875-125 mg tablet 1 tablet PO Q12H 10 Days Qty: 20 0RF No Action amlodipine 10 mg tablet metformin 1,000 mg tablet losartan 100 mg tablet Jardiance 25 mg tablet 25 mg PO DAILY Follow-up/Referrals: [facility] [Primary Care Provider, Medical] - 3 Days Time of Disposition: 17:14
--- OUTSIDE RECORDS SUMMARY | 2025-05-07 16:57 | XMS_ITS | Clinical Summary ---
Author Organization [facility] [employer] Address [address] [place] [address] Care Team Providers Care Formation Testing Operator Name Role Phone Endy Jeffers MD Primary Care Provider [phone] Tiffany Gallagher MD Unavailable Source Comments [facility] [employer],non-owned Affiliates and Associated Physician Practices is amultiple site organization consisting of ambulatory clinics and hospital sitesin [place], [place], [place] and [place]. This disclosure is being madepursuant to the Care Everywhere program and may not contain all information available regarding this patient. Last updated 18.[facility] [employer] Allergies No known active allergies Medications * [...] continues to participate in group therapy at [facility] - discussed sleep hygiene practices, [...] Retinopathy: pending - Ancillary Support: DM educator, veneer taper Last Assessment & Plan: A1c stable at [...] Comments Blood Pressure 172/83 06/14/2023 1:36 PM SMALL WIND ENERGY INSTALLER Pulse 63 06/14/2023 1:36 PM SMALL WIND ENERGY INSTALLER Temperature 36.4 C (97.6 F) 06/14/2023 1:36 PM SMALL WIND ENERGY INSTALLER Respiratory Rate 16 06/14/2023 1:36 PM SMALL WIND ENERGY INSTALLER Oxygen Saturation 97% 06/14/2023 1:55 PM SMALL WIND ENERGY INSTALLER Inhaled Oxygen Concentration - - Weight 95.3 kg (210 lb) 06/14/2023 1:36 PM SMALL WIND ENERGY INSTALLER Height 190.5 cm (6' 3) 06/14/2023 1:36 PM SMALL WIND ENERGY INSTALLER Body Mass Index 26.25 06/14/2023 1:36 PM SMALL WIND ENERGY INSTALLER Plan of Treatment Health Maintenance Due Date [...] Hep B Twinrix 3-dose series) 05/29/2019 05/01/2019 DIABETES-HGB A1C 11/18/2019 08/20/2019, 07/2018, 01/25/2019, Additional history exists DIABETES-FOOT EXAM WITH MONOFILAMENT 05/28/2020 05/28/2019, 10/16/2018 COLON MONITORING 07/23/2020 07/23/2019, , 07/23/2019, Additional history exists Colorectal Cancer Screening 07/23/2020 DTAP/TDAP/TD VACCINES (3 - Td or Tdap) 05/14/2021 05/14/2011, 05/14/2011 DIABETES RETINOPATHY SCREENING 01/21/2022 01/22/2020, 12/04/2018 DIABETES-SERUM CREATININE 06/14/20242022, 04/01/2020, 08/20/2019, Additional history exists DEPRESSION SCREENING 06/27/2024 DIABETES - URINE PROTEIN SCREENING 06/27/2024 10/16/2018 MEDICARE AWV CALENDAR YEAR 2024 05/28/2019 COVID-19 VACCINE ( season) 2025 03/15/2022, 09/27/2021, 04/01/2021, Additional [...] COMPREHENSIVE METABOLIC PANEL STAT 06/14/2023 3:47 PM SMALL WIND ENERGY INSTALLER DIABETES EYE EXAM Routine 01/22/2020 HEMOGLOBIN A1C Add on 08/20/2019 12:28 PM SMALL WIND ENERGY INSTALLER Facial droop ENDOSCOPY, COLON, SCREENING Routine 07/23/2019 7:50 AM SMALL WIND ENERGY INSTALLER MICROALB/CREAT RATIO URINE RANDOM PANEL Routine 10/16/2018 9:47 AM CDT Type 2 diabetes mellitus without complication, without long-term current use of insulin from Last 3 Months or Most Recently Relevant to Health Maintenance Results * (ABNORMAL) COMPREHENSIVE METABOLIC PANEL (06/14/2023 3:47 PM SMALL WIND ENERGY INSTALLER) BUN 16 7 - 26 mg/dL 06/14/2023 4:31 PM [facility] Creatinine 1.00 0.71 - 1.16 mg/dL 06/14/2023 4:31 PM [facility] Sodium 139 136 - 145 mmol/L 06/14/2023 4:31 PM [facility] Potassium 4.4 3.5 - 4.5 mmol/L 06/14/2023 4:31 PM [facility] Chloride 108(H) 98 - 107 mmol/L 06/14/2023 4:31 PM [facility] CO2 21(L) 22 - 29 mmol/L 06/14/2023 4:31 PM [facility] Glucose 158(H) 70 - 115 mg/dL 06/14/2023 4:31 PM [facility] Calcium 8.6 8.4 - 10.2 mg/dL 06/14/2023 4:31 PM [facility] Protein Total 7.2 6.0 - 8.3 g/dL 06/14/2023 4:31 PM [facility] Albumin 3.9 3.4 - 5.0 g/dL 06/14/2023 4:31 PM [facility] Bilirubin Total 0.5 0.2 - 1.2 mg/dL 06/14/2023 4:31 PM [facility] Alkaline Phosphatase 50 40 - 150 U/L 06/14/2023 4:31 PM [facility] ALT 13 5 - 55 U/L 06/14/2023 4:31 PM [facility] AST 18 5 - 34 U/L 06/14/2023 4:31 PM [facility] Anion Gap 10 6 - 16 06/14/2023 4:31 PM [facility] BUN/Creatinine Ratio 16 7 - 23 06/14/2023 4:31 PM [facility] Osmolality Calculated 292 275 - 295 mOsm/kg 06/14/2023 4:31 PM [facility] Albumin/Globulin Ratio 1.2 1.1 - 2.3 06/14/2023 4:31 PM [facility] eGFR by CKD-EPI 80(L) >=90 mL/min/1.7 3 m2 06/14/2023 4:31 PM [facility] Blood BLOOD SPECIMEN / Unknown Venipuncture / Unknown 06/14/2023 3:47 PM SMALL WIND ENERGY INSTALLER 06/14/2023 3:55 PM [facility] us Jefefrson Gruber MD LAB - CHEMISTRY ORDERABLES Fi nal Result [facility] [address] [place] [address], [facility] [phone] * DIABETES EYE EXAM (01/22/2020) us Scanned Document HEALTH MAINTENANCE Final Result * (ABNORMAL) HEMOGLOBIN A1C (08/20/2019 12:28 PM SMALL WIND ENERGY INSTALLER) Hemoglobin A1c 8.3(H) 4.2 - 5.6 % 08/20/2019 6:43 PM [facility] Estimated Average Glucose 192 mg/dL 08/20/2019 6:43 PM SMALL WIND ENERGY INSTALLER [facility] Blood BLOOD SPECIMEN / Unknown Venipuncture / Unknown 08/20/2019 12:28 PM SMALL WIND ENERGY INSTALLER 08/20/2019 12:34 PM SMALL WIND ENERGY INSTALLER Narrative [facility] - 08/20/2019 6:43 PM SMALL WIND ENERGY INSTALLER The following cutoff levels are recommended by [place] [employer]. A1c > 6.5% : considered [...] exceeds 5% in the specimen. Eda Tovar STAMPING MILL TENDER-TEACHER LIP READING LAB - CHEMISTRY ORDERABLES Final Result [facility] [address] [place] [address] * ENDOSCOPY, COLON, SCREENING (07/23/2019 7:50 AM SMALL WIND ENERGY INSTALLER) Report Endoscopy POC _ Patient Name: Joanne Mackenzie Procedure Date: 07/23/2019 7:50 AM Date of : 1950 Admit Type: Outpatient Age: 68 Gender: Male Ethnicity: Not or Race: Black or Attending MD: Farshad eFrnandes MD _ Procedure: Colonoscopy Indications: Screening for colorectal malignant neoplasm Providers: Farshad Fernandes MD (Doctor), Jamie Riggs RN, Jamia Crowley, Electronic Equipment Installer Referring MD: Sushant Birch MD (Referring MD) [...] present medications. Procedure Code(s): --- Professional --- 89427, Colonoscopy, flexible; with removal of tumor(s), polyp(s), or other lesion(s) by snare technique 67870, 59, Colonoscopy, flexible; with biopsy, single or multiple --- Technical --- 77799, Colonoscopy, flexible; with removal of tumor(s), polyp(s), or other lesion(s) by snare technique 06762, 59, Colonoscopy, flexible; with biopsy, single or [...] or abscess without bleeding CPT copyright 2017 [employer]. All rights reserved. The codes documented in this report are preliminary and upon senior principal process engineer review may be revised to meet current compliance requirements. Farshad Fernandes MD 07/23/2019 9:01:18 AM This report has been signed electronically. Number of Addenda: 0 Note Initiated On: 07/23/2019 7:50 AM [facility] ENDOSCOPY 07/23/2019 7:50 AM SMALL WIND ENERGY INSTALLER us Farshad Fernandes MD GI PROCEDURE ORDERABLES Edited R esult - Final [facility] ENDOSCOPY * MICROALB/CREAT RATIO URINE RANDOM [...] within a diagnostic category. Test Performed at: [facility] [address] [address] ETHAN RODRIGUEZ DO,MPH Urine URINE SPECIMEN OBTAINED BY CLEAN CATCH PROCEDURE / Unknown 10/16/2018 9:47 AM CDT 10/16/2018 9:49 AM CDT Sushant Birch Jr., MD LAB - URINE CH EMISTRY ORDERABLES Final Result [facility] [address] [place] [address] from Last 3 Months or Most Recently Relevant to Health Maintenance Insurance MEDICARE [facility] [employer] MEDICARE ADV HMO & PPO MEDICARE [facility]/ Address: [facility] CLAIMS [address] [place] [address] Advance Directives * Full Code (Latest Code Status on File) Date Activated Date Inactivated Comments 08/20/2019 6:21 PM 08/21/2019 7:12 PM * Full Code Date Activated Date Inactivated Comments 08/20/2019 6:08 PM 08/20/2019 6:21 PM Care Teams Formation Testing Operator Relationship Specialty Start Date End Date Endy Jeffers MD [address], [address] PCP - General Family Medicine 09/28/19 Tiffany Gallagher MD [address], [address] Resident Internal Medicine 04/24/24
--- OUTSIDE RECORDS SUMMARY | 2025-05-07 16:57 | XMS_ITS | Clinical Summary ---
Author Organization [facility] Address [address] [facility] [address] [place] [address] Care Team Providers Care Wood Grinder Name Role Phone Endy Jeffers MD Primary Care Provider [phone]- [phone] Social History Tobacco Use Types Packs/Day Years [...] 10/08/2024 9:19 AM CDT Fatigue Diabetes mellitus ([facility]) Essential (primary) hypertension Hyperlipidemia Prolonged posttraumatic stress disorder Personal history of transient cerebral ischemia Prostate cancer screening from Last 3 Months or Most Recently Relevant to Health Maintenance Results * LIPID PANEL (10/08/2024 9:19 AM CDT) CHOLESTEROL 136 <200.0 MG/DL 10/08/2024 12:33 PM T [facility] TRIGLYCERIDES 51 <150 MG/DL 10/08/2024 12:33 PM T [facility] HDL 76 >40.0 MG/DL 10/08/2024 12:33 PM T [facility] LDL (CALCULATED) 50 <100 MG/DL 10/09/19 25 12:33 PM T [facility] NON HDL CHOLESTEROL 60 <130 MG/DL 10/08 12:33 PM T [facility] CHOL/HDL RATIO 1.8 0.0 - 4.5 10/08/2024 12:33 PM T [facility] VLDL CALCULATION 10 5 - 55 MG/DL 10/08/2024 12:33 PM T [facility] LIPID INTERPRETATION 10/08/2024 12:33 PM T [...] Endy Jeffers MD LABORATORY Final Resu lt [facility] [address] [place] [address], from Last 3 Months or Most Recently Relevant to Health Maintenance Insurance [facility] MEDICARE MEDICARE HUMAN Care Teams Wood Grinder Relationship Specialty Start Date End Date Endy Jeffers MD [address] [place] [address] PCP - General FAMILY PRACTICE 10/08/24
--- OUTSIDE RECORDS SUMMARY | 2025-05-07 16:57 | XMS_ITS | Clinical Summary ---
Author Organization [facility] Address [address] [place] [address] Phone Care Team Providers Care Homebound Teacher Name Role Phone Bita Shields MD Primary Care Provider [phone] Allergies No known active allergies Medications albuterol [...] on file Legal Sex Male 1:27 PM SHOE PATTERNMAKER Gender Identity Not on file Sexual Orientation Not on file Last Filed Vital Signs Vital Sign Reading Time Taken Comments Blood Pressure 132/94 05/17/2017 4:30 PM SHOE PATTERNMAKER Pulse 60 05/17/2017 4:30 PM SHOE PATTERNMAKER Temperature 37.1 C (98.7 F) 05/17/2017 4:30 PM SHOE PATTERNMAKER Respiratory Rate 18 05/17/2017 4:30 PM SHOE PATTERNMAKER Oxygen Saturation 100% 05/17/2017 4:30 PM SHOE PATTERNMAKER Inhaled Oxygen Concentration - - Weight 98.9 kg (218 lb) 05/17/2017 1:49 PM SHOE PATTERNMAKER Height 190.5 cm (6' 3) 05/17/2017 1:49 PM SHOE PATTERNMAKER Body Mass Index 27.25 05/17/2017 1:49 PM SHOE PATTERNMAKER Plan of Treatment Health Maintenance Due Date [...] 2025 Insurance MEDICARE PART A AND B [employer] Care Teams Homebound Teacher Relationship Specialty Start Date End Date Bita Shields MD PCP - General Internal Medicine 05/17/17
--- OUTSIDE RECORDS SUMMARY | 2025-05-07 16:58 | XMS_ITS | Data Portability ---
Author Organization ADIEL - [facility] Address [address] [place] [address] Assessment Encounter Date Assessment Date Assessment LastModified by Organization Details LastModified Time 09/01/2023 09/01/2023 Pneumodoren #1 10 drops followed by pneumodoren #2 10 drops ten minutes later Eupatorium injection Samson cocktails [email or web address] Not available 09/01/2023 14:53:56 Plan of Treatment Reminders Order Date Submit Date Provider Last Modified By Organization Details Last Modified Time Details Appointments [facility] PATIENT 2024 09:00A Ted Jeffers M.D. [...] + folate, serum or blood 2023 024 NVEAEH Not available 02/01/2024 05:34:49 iron + TIBC + ferritin , serum 2023 024 NEVAEH Not available 02/01/2024 05:34:48 testoste liang, total, serum 2023 024 NEVAEH Not available 02/01/2024 05:34:46 vitamin D3, 25-hydro xy, serum 2023 024 [email or web address] Not available 02/06/2024 14:40:36 CBC w/ auto diff 2023 024 NEVAEH Not available 02/01/2024 05:34:45 CMP, serum or plasma 2023 024 NEVAEH Not available 02/01/2024 05:34:47 PSA, serum or plasma 2023 024 NEVAEH Not available 02/01/2024 05:34:46 lipid panel, serum 2023 024 [email or web address] 12 Not available 02/06/2024 14:40:36 TSH, serum [...] referral 2024 025 amalic Emmanuel Huertas MD, [facility] , [place], [address], 03/11/2025 07:36:23 Procedures None recorded . Surgeries None recorded . Imaging None recorded . Medication Orders amlodipi ne 10 mg tablet 2024 025 [facility] #[id number], [address] [place] [address], [id number], 03/05/2025 14:08:16 metformi n 1,000 mg tablet 2024 025 [facility] #[id number], [address] [place] [address], [id number], 03/05/2025 14:08:25 losartan 100 mg tablet 2024 025 [facility] #[id number], [address] [place] [address], [id number], 03/05/2025 14:08:22 Patient TargetsNo targets recorded. Patient Instructions Encounter Date Encounter Id Patient Instructions Last Modified By Organization Details Last Modified Time 07/15/2023 [id number] high cholesterol : care instructions cwessling Not available 07/15/2023 12:21:44 01/30/2024 [id number] learning about t ype 2 diabetes cwessling Not available 01/30/2024 19:21:20 type 2 diabetes: care instructions cwessling Not available 01/30/2024 19:21:20 Take cyclobenzaprine regularly as prescribed. cwessling Not available 01/30/2024 19:18:56 09/28/2024 [id number] learning about t ype 2 diabetes cwessling Not available 09/28/2024 17:57:03 03/05/[id number] learning about t ype 2 diabetes cwessling [...] 4.8 10'3/ uL 3.5-10 .5 Not Available [facility] (Lab) [address], [place], [address], 02/01/2024 05:34:45 01/31/20 24 01/31/2024 CBC W/DIF F RBC 5.37 10'6/ uL (based on docume nted legal sex) 4.30-5 .80 Not Available [facility] (Lab) [address], [place], [address], 02/01/2024 05:34:45 01/31/20 24 01/31/2024 CBC W/DIF F HGB 16.0 g/dL (based on docume nted legal sex) 13.0-1 7.5 Not Available [facility] (Lab) [address], [place], [address], 02/01/2024 05:34:45 01/31/20 24 01/31/2024 CBC W/DIF F HCT 50.1 % (based on docume nted legal sex) 38.0-5 0.0 high Not Available [facility] (Lab) [address], [place], [address], 02/01/2024 05:34:45 01/31/20 24 01/31/2024 CBC W/DIF F MCV 93.3 fL 80.0-9 9.0 Not Available [facility] (Lab) [address], [place], [address], 02/01/2024 05:34:45 01/31/20 24 01/31/2024 CBC W/DIF F MCH 29.8 pg 27.0-3 4.0 Not Available [facility] (Lab) [address], [place], [address], 02/01/2024 05:34:45 01/31/20 24 01/31/2024 CBC W/DIF F MCHC 31.9 g/dL 32.0-3 5.5 low Not Available [facility] (Lab) [address] [facility], [place], [address], 02/01/2024 05:34:45 01/31/20 24 01/31/2024 CBC W/DIF F RDW 15.1 % 11.0-1 5.0 high Not Available [facility] (Lab) [address] [facility], [place], [address], 02/01/2024 05:34:45 01/31/20 24 01/31/2024 CBC W/DIF F plt 230 10'3/ uL 150-40 0 Not Available [facility] (Lab) [address] [facility], [place], [address], 02/01/2024 05:34:45 01/31/20 24 01/31/2024 CBC W/DIF F MPV 11.0 fL 8.8-12 .1 Not Available [facility] (Lab) [address] [facility], [place], [address], 02/01/2024 05:34:45 01/31/20 24 01/31/2024 CBC W/DIF F NRBC's 0.0 % 0.0 Not Available [facility] (Lab) [address] [facility], [place], [address], 02/01/2024 05:34:45 01/31/20 24 01/31/2024 CBC W/DIF F absolute NRBCs 0.0 10'3/ uL no refere nce range establ ished Not Available [facility] (Lab) [address] [facility], [place], [address], 02/01/2024 05:34:45 01/31/20 24 01/31/2024 CBC W/DIF F neutrophils 52.1 % 34.0-7 3.0 Not Available [facility] (Lab) [address] [facility], [place], [address], 02/01/2024 05:34:45 01/31/20 24 01/31/2024 CBC W/DIF F lymphocytes 35.5 % 15.0-5 0.0 Not Available [facility] (Lab) [address] [facility], [place], [address], 02/01/2024 05:34:45 01/31/20 24 01/31/2024 CBC W/DIF F monocytes 9.5 % 1.0-15 .0 Not Available [facility] (Lab) [address] [facility], [place], [address], 02/01/2024 05:34:45 01/31/20 24 01/31/2024 CBC W/DIF F eosinophils 2.1 % 0.0-8. 0 Not Available [facility] (Lab) [address] [facility], [place], [address], 02/01/2024 05:34:45 01/31/20 24 01/31/2024 CBC W/DIF F basophils 0.6 % 0.0-2. 0 Not Available [facility] (Lab) [address] [facility], [place], [address], 02/01/2024 05:34:45 01/31/20 24 01/31/2024 CBC W/DIF F immature granulocytes 0.2 % no define d refere nce range Not Available [facility] (Lab) [address] [facility], [place], [address], 02/01/2024 05:34:45 01/31/20 24 01/31/2024 CBC W/DIF F absolute neutrophils 2.5 10'3/ uL 1.5-8. 0 Not Available [facility] (Lab) [address] [place], [address], 02/01/2024 05:34:45 01/31/20 24 01/31/2024 CBC W/DIF F absolute lymphocytes 1.7 10'3/ uL 1.0-4. 0 Not Available [facility] (Lab) [address] [place], [address], 02/01/2024 05:34:45 01/31/20 24 01/31/2024 CBC W/DIF F absolute monocytes 0.5 10'3/ uL 0.2-1. 0 Not Available [facility] (Lab) [address] [facility], [place], [address], 02/01/2024 05:34:45 01/31/20 24 01/31/2024 CBC W/DIF F absolute eosinophils 0.1 10'3/ uL 0.0-0. 6 Not Available [facility] (Lab) [address] [facility], [place], [address], 02/01/2024 05:34:45 01/31/20 24 01/31/2024 CBC W/DIF F absolute basophils 0.0 10'3/ uL 0.0-0. 3 Not Available [facility] ([facility]) [address] [facility], [place], [address], 02/01/2024 05:34:45 01/31/20 24 01/31/2024 CBC W/DIF [...] resul ts are expec anthony. Not Available [facility] (Lab) [address] [facility], [place], [address], 02/01/2024 05:34:45 01/31/20 24 01/31/2024 TESTO STERO NE, TOTAL testosterone , total 343 NG/dL 200-80 0 Not Available [facility] (Lab) [address] [facility], [place], [address], 02/01/2024 05:34:46 01/31/20 24 01/31/2024 PSA TOTAL (DIAG NOSTI C) PSA, total 2.39 NG/mL 0.00-4 .00 This assay was perfo rmed using Beckm an Coult er reage nts and test kits. Value s obtai bipin with other assay metho ds or kits canno t be used inter mercado eably . Not Available [facility] (Lab) [address] [facility], [place], [address], 02/01/2024 05:34:46 01/31/20 24 01/31/2024 LIPID PANEL ,AMA (LDL- CALC) total cholesterol 124 mg/dL 0-199 Not Available [facility] (Lab) [address] [place], [address], 02/01/2024 05:34:47 01/31/20 24 01/31/2024 LIPID PANEL ,AMA (LDL- CALC) triglyceride s 53 mg/dL 0-150 NCEP Refer ence Value s for Trigl yceri radha: Steph l: <150 mg/dL Borde rline High: 150 - 199 mg/dL High: 200 - 499 mg/dL Very High: >/= 500 mg/dL Not Available [facility] (Lab) [address] [place], [address], 02/01/2024 05:34:47 01/31/20 24 01/31/2024 LIPID PANEL ,AMA (LDL- CALC) HDL cholesterol 63 mg/dL >40 Not Available [facility] (Lab) [address] [place], [address], 02/01/2024 05:34:47 01/31/20 24 01/31/2024 LIPID PANEL [...] mg/dL , HDL <40 mg/dL Not Available [facility] (Lab) [address] [facility], [place], [address], 02/01/2024 05:34:47 01/31/2001/31/2024 LIPID PANEL ,AMA (LDL- CALC) non-HDL cholesterol 61 mg/dL no refere nce range A reaso nable goal for non-H DL surekha stero l is one that is 30 mg/dL highe r than the LDL surekha stero l goal. Not Available [facility] (Lab) [address] [facility], [place], [address], 02/01/2024 05:34:47 01/31/2001/31/2024 LIPID PANEL ,AMA (LDL- CALC) chol/HDL ratio 2.0 . 0.0-5. 0 On October 19, 2022, [facility] labor atori es rogelio ed the equat [...] n. 2017Jun 28;137 (1):1 0-19. Not Available [facility] (Lab) [address] [facility], [place], [address], 02/01/2024 05:34:47 01/31/20 24 01/31/2024 CMP(C OMPRE HENSI VE METAB OLIC PANEL ) sodium 139 mmol/ L 133-14 6 Not Available [facility] (Lab) [address] [facility], [place], [address], 02/01/2024 05:34:47 01/31/20 24 01/31/2024 CMP(C OMPRE HENSI VE METAB OLIC PANEL ) potassium 4.5 mmol/ L 3.5-5. 1 Not Available [facility] (Lab) [address] [facility], [place], [address], 02/01/2024 05:34:47 01/31/20 24 01/31/2024 CMP(C OMPRE HENSI VE METAB OLIC PANEL ) chloride 104 mmol/ L 98-107 Not Available [facility] (Lab) [address] [place], [address], 02/01/2024 05:34:47 01/31/20 24 01/31/2024 CMP(C OMPRE HENSI VE METAB OLIC PANEL ) carbon dioxide 26 mmol/ L 21-31 Not Available [facility] (Lab) [address] [place], [address], 02/01/2024 05:34:47 01/31/20 24 01/31/2024 CMP(C OMPRE HENSI VE METAB OLIC PANEL ) anion gap 9 mmol/ L 4-13 Not Available [facility] (Lab) [address] [facility], [place], [address], 02/01/2024 05:34:47 01/31/20 24 01/31/2024 CMP(C OMPRE HENSI VE METAB OLIC PANEL ) blood urea nitrogen 16 mg/dL 7-25 Not Available [facility] (Lab) [address] [facility], [place], [address], 02/01/2024 05:34:47 01/31/20 24 01/31/2024 CMP(C OMPRE HENSI VE METAB OLIC PANEL ) creatinine 1.09 mg/dL 0.60-1 .30 Not Available [facility] (Lab) [address] [facility], [place], [address], 02/01/2024 05:34:47 01/31/20 24 01/31/2024 CMP(C OMPRE HENSI VE METAB OLIC PANEL ) egfrcr (CKD-epi 2020) 72 mL/mi n/1.7 3_m2 >=60 Not Available [facility] (Lab) [address] [facility], [place], [address], 02/01/2024 05:34:47 01/31/20 24 01/31/2024 CMP(C OMPRE HENSI VE METAB OLIC PANEL ) calcium 9.3 mg/dL 8.3-10 .5 Not Available [facility] (Lab) [address] [place], [address], 02/01/2024 05:34:47 01/31/20 24 01/31/2024 CMP(C OMPRE HENSI VE METAB OLIC PANEL ) glucose 106 mg/dL 70-100 high Not Available [facility] (Lab) [address] [place], [address], 02/01/2024 05:34:47 01/31/20 24 01/31/2024 CMP(C OMPRE HENSI VE METAB OLIC PANEL ) protein, total 7.2 g/dL 6.4-8. 3 Not Available [facility] ([facility]) [address] [facility] [place], [address], 02/01/2024 05:34:47 01/31/20 24 01/31/2024 CMP(C OMPRE HENSI VE METAB OLIC PANEL ) albumin 4.5 g/dL 3.5-5. 0 Not Available [facility] (Lab) [address] [facility], [place], [address], 02/01/2024 05:34:47 01/31/20 24 01/31/2024 CMP(C OMPRE HENSI VE METAB OLIC PANEL ) ALT 12 units /L 11-51 Not Available [facility] (Lab) [address] [facility], [place], [address], 02/01/2024 05:34:47 01/31/20 24 01/31/2024 CMP(C OMPRE HENSI VE METAB OLIC PANEL ) alkaline phosphatase 54 units /L 34-104 Not Available [facility] (Lab) [address] [facility], [place], [address], 02/01/2024 05:34:47 01/31/20 24 01/31/2024 CMP(C OMPRE HENSI VE METAB OLIC PANEL ) AST 14 units /L 13-39 Not Available [facility] (Lab) [address] [facility], [place], [address], 02/01/2024 05:34:47 01/31/20 24 01/31/2024 CMP(C OMPRE HENSI VE METAB OLIC PANEL ) bilirubin, total 0.6 mg/dL 0.2-1. 2 Not Available [facility] (Lab) [address] [facility], [place], [address], 02/01/2024 05:34:47 01/31/20 24 01/31/2024 TSH TSH 2.21 uIU/m L 0.30-5 .33 Not Available [facility] (Lab) [address] [place], [address], 02/01/2024 05:34:48 01/31/20 24 01/31/2024 RUDY TIN / IRON / TRANS RUDY N / TIBC iron 79 ug/dL 60-175 Not Available [facility] (Lab) [address] [place], [address], 02/01/2024 05:34:48 01/31/20 24 01/31/2024 RUDY TIN / IRON / TRANS RUDY N / TIBC transferrin 266 mg/dL 200-36 0 Not Available [facility] (Lab) [address] [facility], [place], [address], 02/01/2024 05:34:48 01/31/20 24 01/31/2024 RUDY TIN / IRON / TRANS RUDY N / TIBC ferritin 115.4 NG/mL 24.0-3 36.0 Not Available [facility] (Lab) [address] [facility], [place], [address], 02/01/2024 05:34:48 01/31/20 24 01/31/2024 RUDY TIN / IRON / TRANS RUDY N / TIBC TIBC 372 ug/dL 250-45 0 Not Available [facility] (Lab) [address] [place], [address], 02/01/2024 05:34:48 01/31/20 24 01/31/2024 RUDY TIN / IRON / TRANS RUDY N / TIBC iron saturation 21 % 20-55 Not Available [facility] (Lab) [address] [place], [address], 02/01/2024 05:34:48 01/31/20 24 01/31/2024 VITAM IN B12 / FOLAT E PANEL vitamin B12 548 pg/mL 180-91 4 Steph l Range : 180-9 14 pg/mL . Indet ermin ate Range : 145-1 80 pg/mL . Defic ient Range : <=145 pg/mL . Not Available [facility] (Lab) [address] [place], [address], 02/01/2024 05:34:49 08/06/20 24 01/31/2024 VITAM IN B12 / FOLAT E PANEL folate, serum 11.4 NG/mL 6.0-20 .0 Not Available [facility] (Lab) [address], [place], [address], 02/01/2024 05:34:49 01/31/20 24 01/31/2024 HEMOG LOBIN [...] >8.0% Actio n sugge sted Not Available [facility] (Lab) [address], [place], [address], 02/01/2024 05:34:49 09/29/1909/28/2024 CBC W/DIF F WBC 5.4 10'3/ uL 3.5-10 .5 Not Available [facility] (Lab) [address], [place], [address], 09/29/2024 07:02:39 09/29/1909/28/2024 CBC W/DIF F RBC 5.16 10'6/ uL (based on docume nted legal sex) 4.30-5 .80 Not Available [facility] (Lab) [address], [place], [address], 09/29/2024 07:02:39 09/29/19 25 09/28/2024 CBC W/DIF F HGB 15.4 g/dL (based on docume nted legal sex) 13.0-1 7.5 Not Available [facility] ([facility]) [address], [place], [address], 09/29/2024 07:02:39 09/29/19 25 09/28/2024 CBC W/DIF F HCT 46.4 % (based on docume nted legal sex) 38.0-5 0.0 Not Available [facility] ([facility]) [address] [facility], [place], [address], 09/29/2024 07:02:39 09/29/19 25 09/28/2024 CBC W/DIF F MCV 89.9 fL 80.0-9 9.0 Not Available [facility] ([facility]) [address] [facility], [place], [address], 09/29/2024 07:02:39 09/29/19 25 09/28/2024 CBC W/DIF F MCH 29.8 pg 27.0-3 4.0 Not Available [facility] ([facility]) [address] [facility], [place], [address], 09/29/2024 07:02:39 09/29/19 25 09/28/2024 CBC W/DIF F MCHC 33.2 g/dL 32.0-3 5.5 Not Available [facility] ([facility]) [address] [facility], [place], [address], 09/29/2024 07:02:39 09/29/19 25 09/28/2024 CBC W/DIF F RDW 13.8 % 11.0-1 5.0 Not Available [facility] ([facility]) [address] [facility], [place], [address], 09/29/2024 07:02:39 09/29/19 25 09/28/2024 CBC W/DIF F plt 213 10'3/ uL 150-40 0 Not Available [facility] ([facility]) [address] [facility], [place], [address], 09/29/2024 07:02:39 09/29/19 25 09/28/2024 CBC W/DIF F MPV 10.3 fL 8.8-12 .1 Not Available [facility] ([facility]) [address] [facility], [place], [address], 09/29/2024 07:02:39 09/29/19 25 09/28/2024 CBC W/DIF F neutrophils 50.1 % 34.0-7 3.0 Not Available [facility] (Lab) [address] [place], [address], 09/29/2024 07:02:39 09/29/19 25 09/28/2024 CBC W/DIF F lymphocytes 37.2 % 15.0-5 0.0 Not Available [facility] ([facility]) [address] [facility], [place], [address], 09/29/2024 07:02:39 09/29/19 25 09/28/2024 CBC W/DIF F monocytes 10.6 % 1.0-15 .0 Not Available [facility] ([facility]) [address] [facility], [place], [address], 09/29/2024 07:02:39 09/29/19 25 09/28/2024 CBC W/DIF F eosinophils 1.5 % 0.0-8. 0 Not Available [facility] (Lab) [address] [place], [address], 09/29/2024 07:02:39 09/29/19 25 09/28/2024 CBC W/DIF F basophils 0.4 % 0.0-2. 0 Not Available [facility] ([facility]) [address] [facility], [place], [address], 09/29/2024 07:02:39 09/29/1909/28/2024 CBC W/DIF F immature granulocytes 0.2 % no define d refere nce range Immat ure Granu locyt es (IG) repre sents autom ated enume ratio n of Metam yeloc ytes, Myelo cytes and Promy elocy nate when IG is < 5%. Blast s are not inclu ded in IG and repor anthony separ ately if prese nt. Not Available [facility] (Lab) [address] [facility], [place], [address], 09/29/2024 07:02:39 09/29/19 25 09/28/2024 CBC W/DIF F absolute neutrophils 2.7 10'3/ uL 1.5-8. 0 Not Available [facility] ([facility]) [address] [facility], [place], [address], 09/29/2024 07:02:39 09/29/19 25 09/28/2024 CBC W/DIF F absolute lymphocytes 2.0 10'3/ uL 1.0-4. 0 Not Available [facility] ([facility]) [address] [facility], [place], [address], 09/29/2024 07:02:39 09/29/19 25 09/28/2024 CBC W/DIF F absolute monocytes 0.6 10'3/ uL 0.2-1. 0 Not Available [facility] ([facility]) [address] [facility], [place], [address], 09/29/2024 07:02:39 09/29/19 25 09/28/2024 CBC W/DIF F absolute eosinophils 0.1 10'3/ uL 0.0-0. 6 Not Available [facility] ([facility]) [address] [facility], [place], [address], 09/29/2024 07:02:39 09/29/1909/28/2024 CBC W/DIF F absolute basophils 0.0 10'3/ uL 0.0-0. 3 Not Available [facility] ([facility]) [address] [facility], [place], [address], 09/29/2024 07:02:39 09/29/1909/28/2024 CBC W/DIF F absolute [...] jaquez book. nm.or g/gen derx Not Available [facility] (Lab) [address] [facility], [place], [address], 09/29/2024 07:02:39 09/29/19 25 09/28/2024 CMP(C OMPRE HENSI VE METAB OLIC PANEL ) sodium 138 mmol/ L 133-14 6 Not Available [facility] (Lab) [address] [place], [address], 09/29/2024 07:02:40 09/29/19 25 09/28/2024 CMP(C OMPRE HENSI VE METAB OLIC PANEL ) potassium 4.5 mmol/ L 3.5-5. 1 Not Available [facility] (Lab) [address] [facility], [place], [address], 09/29/2024 07:02:40 09/29/19 25 09/28/2024 CMP(C OMPRE HENSI VE METAB OLIC PANEL ) chloride 105 mmol/ L 98-107 Not Available [facility] (Lab) [address] [place], [address], 09/29/2024 07:02:40 09/29/19 25 09/28/2024 CMP(C OMPRE HENSI VE METAB OLIC PANEL ) carbon dioxide 25 mmol/ L 21-31 Not Available [facility] (Lab) [address] [place], [address], 09/29/2024 07:02:40 09/29/19 25 09/28/2024 CMP(C OMPRE HENSI VE METAB OLIC PANEL ) anion gap 8 mmol/ L 4-13 Not Available [facility] (Lab) [address] [place], [address], 09/29/2024 07:02:40 09/29/19 25 09/28/2024 CMP(C OMPRE HENSI VE METAB OLIC PANEL ) blood urea nitrogen 19 mg/dL 7-25 Not Available [facility] (Lab) [address] [facility], [place], [address], 09/29/2024 07:02:40 09/29/19 25 09/28/2024 CMP(C OMPRE HENSI VE METAB OLIC PANEL ) creatinine 1.20 mg/dL 0.60-1 .30 Not Available [facility] (Lab) [address] [facility], [place], [address], 09/29/2024 07:02:40 09/29/19 25 09/28/2024 CMP(C OMPRE HENSI VE METAB OLIC PANEL ) egfrcr (CKD-epi 2020) 64 mL/mi n/1.7 3_m2 >=60 Not Available [facility] (Lab) [address] [facility], [place], [address], 09/29/2024 07:02:40 09/29/19 25 09/28/2024 CMP(C OMPRE HENSI VE METAB OLIC PANEL ) calcium 9.3 mg/dL 8.3-10 .5 Not Available [facility] (Lab) [address] [facility], [place], [address], 09/29/2024 07:02:40 09/29/19 25 09/28/2024 CMP(C OMPRE HENSI VE METAB OLIC PANEL ) glucose 90 mg/dL 70-100 Not Available [facility] (Lab) [address] [facility], [place], [address], 09/29/2024 07:02:40 09/29/19 25 09/28/2024 CMP(C OMPRE HENSI VE METAB OLIC PANEL ) protein, total 7.2 g/dL 6.4-8. 3 Not Available [facility] (Lab) [address] [facility], [place], [address], 09/29/2024 07:02:40 09/29/19 25 09/28/2024 CMP(C OMPRE HENSI VE METAB OLIC PANEL ) albumin 4.4 g/dL 3.5-5. 0 Not Available [facility] (Lab) [address] [facility], [place], [address], 09/29/2024 07:02:40 09/29/19 25 09/28/2024 CMP(C OMPRE HENSI VE METAB OLIC PANEL ) ALT 12 units /L 11-51 Not Available [facility] (Lab) [address] [facility], [place], [address], 09/29/2024 07:02:40 09/29/19 25 09/28/2024 CMP(C OMPRE HENSI VE METAB OLIC PANEL ) alkaline phosphatase 54 units /L 34-104 Not Available [facility] (Lab) [address] [facility], [place], [address], 09/29/2024 07:02:40 09/29/19 25 09/28/2024 CMP(C OMPRE HENSI VE METAB OLIC PANEL ) AST 17 units /L 13-39 Not Available [facility] (Lab) [address] [facility], [place], [address], 09/29/2024 07:02:40 09/29/19 25 09/28/2024 CMP(C OMPRE HENSI VE METAB OLIC PANEL ) bilirubin, total 0.6 mg/dL 0.2-1. 2 Not Available [facility] (Lab) [address] [facility], [place], [address], 09/29/2024 07:02:40 09/29/19 25 09/28/2024 HEMOG LOBIN [...] >8.0% Actio guerrero ramirez sted Not Available [facility] (Lab) [address], [place], [address], 09/29/2024 07:02:40 04/27/20 24 04/27/2024 MRI, naina jennifer, w/o contr ast No observ ation record ed. [email or web address] [facility] [address], [place], [address], 04/30/2024 09:47:42 Result Notes None recorded. Problems Name Problem SNOMED Code Status Onset Date Resolution Date Notes Provider Name and Address Organization Details Recorded Time Type 2 diabetes mellitus 24400118 Active 2019 Not Available [facility] 2 11:54:26 Diabetes mellitus 26987086 Active 2019 Not Available [facility] 2 11:54:26 Chronic cough 96252252 Active 2019 Not Available [facility] 2 11:54:26 History of transient ischemic attack 454919287 Active 2019 Not Available [facility] 2 11:54:25 Hyperlipid emia 68956947 Active 2019 Not Available [facility] 2 11:54:26 Osteoarthr itis of knee 595424538 Active 2019 Not Available [facility] 2 11:54:26 Chronic neck pain 7175892165216 Active 2019 Not Available [facility] 2 11:54:25 Hypertensi ve disorder 21189646 Active 2019 Not Available [facility] 2 11:54:26 Cough 21319471 Active 2020 Not Available [facility] 2 11:54:26 Chest pain 04586543 Active 2020 Not Available [facility] 2 11:54:26 Chronic bronchitis 47151687 Active 2021 Not Available [facility] 2 11:54:26 Chronic post-traum atic stress disorder 305934633 Active 2021 Not Available [facility] 2 11:54:26 Bronchiect asis 31994682 Active 2021 Not Available [facility] 2 11:54:26 Post-traum atic stress disorder 87658382 Active 2021 Not Available [facility] 2 11:54:25 Coronary arterioscl erosis 90349801 Active 2021 Not Available [facility] 2 11:54:26 Acute sinusitis 34474421 Active 2023 Endy Jeffers MD [address] [place], [address] , [facility] 4 14:30:51 Chronic pain of right upper limb 0687440408765 9108 Active 2024 Endy Jeffers MD [address] [place], [address] , [facility] 5 13:57:51 Problem Notes None recorded. Procedures Surgical History Date Name Laterality Status Provider Name and Address Organization Details Recorded Time Appendectomy completed Derrek Jerry [facility] 08/29/2019 15:50:52 Knee [facility] 08/29/2019 15:51:07 Imaging Results [...] Available Not Available No t Available [employer] active Not Available Not Available [...] Address Organization Details Last Updated DateTime 4 91671.2 g 26.8 kg/m2 190.5 cm 97.2 [degF] 57 /min 149/80 mm[Hg] Derrek Akbar [facility] 4 10:50:02 Date Recorded Body height Body mass index (BMI) Body weight Body temperature Heart rate Systolic And Diastolic Provider Name and Address Organization Details Last Updated DateTime 4 190.5 cm 26.4 kg/m2 01925.1 5 g 97 [degF] 60 /min 137/77 mm[Hg] Derrek Akbar [facility] 4 14:10:30 Date Recorded Body height Body mass index (BMI) Body weight Heart rate Body temperature Systolic And Diastolic Provider Name and Address Organization Details Last Updated DateTime 5 190.5 cm 26.1 kg/m2 31411.8 1 g 57 /min 97 [degF] 137/81 mm[Hg] Floridalma CHUN [facility] 5 16:36:02 Date Recorded Body height Heart rate Body temperature Systolic And Diastolic Provider Name and Address Organization Details Last Updated DateTime 01/30/2024 190.5 cm 60 /min 97 [degF] 160/82 mm[Hg] Janae Higgins [facility] 01/30/2024 18:22:49 Date Recorded Body mass index (BMI) Body weight Provider Name and Address Organization Details Last Updated DateTime 01/30/2024 25.5 kg/m2 06538.84 g Floridalma Robb [facility] 01/30/2024 18:32:55 Date Recorded Body height Body mass index (BMI) Body weight Heart rate Body temperature Systolic And Diastolic Provider Name and Address Organization Details Last Updated DateTime 5 190.5 cm 25.7 kg/m2 95185.3 1 g 56 /min 97.2 [degF] 131/73 mm[Hg] [facility] 5 12:14:18 Social History None recorded. Functional Status None recorded. Mental Status None recorded. Family History Nothing Reported. Medical History Condition Response Coronary Artery Disease N Gout N Kidney Stones N Blood Diseases N Hyperthyroidism N Hypothyroidism N COPD N Depression Y Developmental or Behavioral Disorders N Anxiety Disorder [...] ICD10 Code Diagnosis IMO Codes Diagnosis Note [id number] Endy Jeffers MD Main Office [address] [place] [address] [phone] 3 08/29/2019 15:21:54 08/29/2019 17:23:54 Hypertensive disorder 55315893 I10 Chronic neck pain 819795 1248 107 M54.2 Osteoarthr itis of knee 179083174 M17.9 Diabetes mellitus 759593 09 E11.9 [id number] Endy Jeffers MD Main Office [address] [place] [address] 83188-404 3 10/31/2019 12:26:31 10/31/2019 14:22:38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
[2025-05-07 17:04] VITALS: BP 150/75; PULSE 57; RESP 18; TEMP 36.5
== END 2025-05-07 17:18 | disposition home or self-care (01) ==
PROVIDERS: Emergency Provider Nurse Practitioner Family
DX: K08.89 Other specified disorders of teeth and supporting structures (principal); S46.911A Strain of unspecified muscle, fascia and tendon at shoulder and upper arm level, right arm, initial encounter; X58.XXXA Exposure to other specified factors, initial encounter; Y93.H2 Activity, gardening and landscaping; I10 Essential (primary) hypertension; E11.9 Type 2 diabetes mellitus without complications; Z79.84 Long term (current) use of oral hypoglycemic drugs
CPT/HCPCS: 99213; G0463